=== PATIENT | female | born 1970 | race Caucasian/White ===

== ENCOUNTER 2018-06-17 18:47 | Emergency (ER) | payer OTHER ==
[2018-06-17] MEDS ORDERED: Morphine 2 MG/ML Syringe IVPUSH ONE (19:07)
[2018-06-17] MEDS: Sodium Chloride 0.9% 10 ML Syringe FLUSH PRN ×3 (19:13→21:07)
[2018-06-17] MEDS: Morphine 2 MG/ML Syringe IVPUSH PRN ×2 (20:13→21:07)
--- NOTE | 2018-06-17 20:17 | EDM.PDOC ---
ED HPI GENERAL MEDICAL PROBLEM - General Chief Complaint: Lower Extremity Injury/Pain Stated Complaint: left ankle pain Time Seen by Provider: 06/17/18 18:50 Source of Information: Reports: Family History Limitations: Reports: No Limitations - History of Present Illness INITIAL COMMENTS - FREE TEXT/NARRATIVE: Patient is a 47-year-old who comes in with chief complaint of left ankle pain states that she slipped on the ice now has significant pain Duration: Hour(s):, Getting Worse Location: Reports: Lower Extremity, Right Quality: Reports: Ache, Sharp, Throbbing Severity: Moderate Improves with: Reports: Medication Worsens with: Reports: Movement Context: Reports: Trauma Left Ankle Pain Score (Numeric/FACES): 7 - Related Data Allergies Allergy/AdvReac Type Severity Reaction Status Date / Time aloe Allergy Hives Verified 06/17/18 18:59 amoxicillin trihydrate Allergy Yeast Verified 06/17/18 18:59 [From Augmentin] Infection erythromycin base Allergy Cannot Verified 06/17/18 18:59 Remember hydrocodone Allergy Cannot Verified 06/17/18 18:59 Remember imipramine Allergy Headache Verified 06/17/18 18:59 oxycodone Allergy Nausea and Verified 06/17/18 18:59 Vomiting potassium clavulanate Allergy Yeast Verified 06/17/18 18:59 [From Augmentin] Infection Sulfa (Sulfonamide Allergy Rash Verified 06/17/18 18:59 Antibiotics) sulfasalazine Allergy Rash Verified 06/17/18 18:59 Home Meds: Home Meds Aspirin 81 mg PO DAILY 12/23/15 [History] FLUoxetine [PROzac] 40 mg PO DAILY 12/23/15 [History] Gabapentin [Neurontin] 300 mg PO BID 12/23/15 [History] Insulin Aspart [NovoLOG] 50 units SUBCUT ASDIRECTED 12/23/15 [History] Multivitamin [Multi-Vitamin Daily] 1 tab PO DAILY 12/23/15 [History] SUMAtriptan [Imitrex] 100 mg PO DAILY PRN 12/23/15 [History] Simvastatin [Zocor] 40 mg PO BEDTIME 12/23/15 [History] Tolterodine [Detrol] 2 mg PO BID 12/23/15 [History] Albuterol [Ventolin HFA] 2 puff INH Q4H PRN 09/11/17 [History] traMADol [Ultram] 50 mg PO Q6H PRN 09/11/17 [History] Omeprazole 20 mg PO DAILY 12/04/17 [History] Acetaminophen/Codeine [Tylenol with Codeine No.3 300MG/30MG] 2 tab PO Q4H PRN # 50 tablet 12/06/17 [Rx] Hydrocort/Neomycin/Polymyxin B [Cortisporin Otic Soln] 10 ml .XX QID #1 bottle 01/02/18 [Rx] Past Medical History HEENT History: Reports: Impaired Vision, Sinusitis Cardiovascular History: Reports: High Cholesterol Respiratory History: Reports: Bronchitis, Recurrent, Intubation, Previous Gastrointestinal History: Reports: GERD, Hemorrhoids, Hiatal Hernia, Other (See Below) Other Gastrointestinal History: polyp in stomach Genitourinary History: Reports: Other (See Below) Other Genitourinary History: Cyst on right ovary with ovary removed: Overactive bladder [employer] History: Reports: , Spontaneous Musculoskeletal History: Reports: Arthritis, Osteoarthritis Neurological History: Reports: Concussion, Migraines Psychiatric History: Reports: Anxiety, Depression, Panic Attack Endocrine/Metabolic History: Reports: Diabetes, Type I, Other (See Below) Other Endocrine/Metabolic History: insulin pump for 11 years - Infectious Disease History Infectious Disease History: Reports: Chicken Pox, Influenza, Shingles - Past Surgical History Head Surgeries/Procedures: Reports: None HEENT Surgical History: Reports: None Cardiovascular Surgical History: Reports: None Respiratory Surgical History: Reports: None GI Surgical History: Reports: Appendectomy, EGD, Hernia, Inguinal, Hernia Repair /Other Female Surgical History: Reports: Oophorectomy, Tubal Ligation Endocrine Surgical History: Reports: None Neurological Surgical History: Reports: None Musculoskeletal Surgical History: Reports: Other (See Below) Other Musculoskeletal Surgeries/Procedures:: right thumb joint replacement, left ulnar nerve relocation, right foot bone removal. Dermatological Surgical History: Reports: None Social & Family History - Family History Family Medical History: Noncontributory Cardiac: Reports: Heart Failure Endocrine/Metabolic: Reports: Diabetes, type II, Hypothyroidism - Tobacco Use Smoking Status *Q: Former Smoker Used Tobacco, but Quit: Yes Month/Year Tobacco Last Used: 0 - Caffeine Use Caffeine Use: Reports: None Review of Systems - Review of Systems Review Of Systems: ROS reveals no pertinent complaints other than HPI. ED EXAM, GENERAL - Physical Exam Exam: See Below Exam Limited By: No Limitations General Appearance: Alert, WD/WN, No Apparent Distress Ears: Normal External Exam, Normal Canal, Hearing Grossly Normal, Normal TMs Ear Exam: Bilateral Ear: Auricle Normal, Canal Normal, TM normal Nose: Normal Inspection, Normal Mucosa, No Blood Throat/Mouth: Normal Inspection, Normal Lips, Normal Teeth, Normal Gums, Normal Oropharynx, Normal Voice, No Airway Compromise Head: Atraumatic, Normocephalic Neck: Normal Inspection, Supple, Non-Tender, Full Range of Motion Respiratory/Chest: No Respiratory Distress, Lungs Clear, Normal Breath Sounds, No Accessory Muscle Use, Chest Non-Tender Cardiovascular: Normal Peripheral Pulses, Regular Rate, Rhythm, No Edema, No Gallop, No JVD, No Murmur, No Rub GI/Abdominal: Normal Bowel Sounds, Soft, Non-Tender, No Organomegaly, No Distention, No Abnormal Bruit, No Mass (Female) Exam: Deferred Rectal (Female) Exam: Deferred Back Exam: Normal Inspection, Full Range of Motion, NT Extremities: Joint Swelling, Limited Range of Motion Neurological: Alert, Oriented, CN II-XII Intact, Normal Cognition, Normal Gait, Normal Reflexes, No Motor/Sensory Deficits Psychiatric: Normal Affect, Normal Mood Skin Exam: Warm, Dry, Intact, Normal Color, No Rash Course - Orders/Labs/Meds Orders: Active Orders 24 hr Category Date Time Status Ankle Min 3V Lt [CR] Stat Exams 06/17/18 19:03 Taken Morphine Med 06/17/18 20:08 Ordered 2 mg IVPUSH Q1H PRN Sodium Chloride 0.9% [Saline Flush] Med 06/17/18 19:06 Active 10 ml FLUSH ASDIRECTED PRN Saline Lock Insert [OM.PC] Stat Oth 06/17/18 19:06 Ordered Medication Orders Sodium Chloride (Saline Flush) 10 ml FLUSH ASDIRECTED PRN PRN Reason: Keep Vein Open Last Admin: 06/17/18 19:13 Dose: 10 ml Meds: Medications Generic Name Dose Route Start Last Admin Trade Name Freq PRN Reason Stop Dose Admin Sodium Chloride 10 ml 06/17/18 19:06 06/17/18 19:13 Saline Flush FLUSH 10 ml ASDIRECTED PRN Administration Keep Vein Open Discontinued Medications Generic Name Dose Route Start Last Admin Trade Name Freq PRN Reason Stop Dose Admin Morphine Sulfate 2 mg 06/17/18 19:07 06/17/18 19:13 Morphine IVPUSH 06/17/18 19:08 2 mg ONETIME ONE Administration Departure - Departure Time of Disposition: 20:17 Disposition: Home, Self-Care 01 Condition: Fair Clinical Impression: Closed left fibular fracture, Fracture of fibula - Discharge Information *PRESCRIPTION DRUG MONITORING PROGRAM REVIEWED*: No *COPY OF PRESCRIPTION DRUG MONITORING REPORT IN PATIENT HENOK: No Referrals: Darshana Almeida PA-C [Primary Care Provider] - Care Plan Goals: Patient is to call [place] and make appointment with Dr. Shea for Monday we will continue her on Tylenol No. 3 one tablet every 6 hours for pain she is to be nonweightbearing and use crutches - My Orders Last 24 Hours: My Active Orders 06/17/18 19:03 Ankle Min 3V Lt [CR] Stat 06/17/18 19:06 Sodium Chloride 0.9% [Saline Flush] 10 ml FLUSH ASDIRECTED PRN Saline Lock Insert [OM.PC] Stat 06/17/18 20:08 Morphine 2 mg IVPUSH Q1H PRN - Assessment/Plan Last 24 Hours: My Active Orders 06/17/18 19:03 Ankle Min 3V Lt [CR] Stat 06/17/18 19:06 Sodium Chloride 0.9% [Saline Flush] 10 ml FLUSH ASDIRECTED PRN Saline Lock Insert [OM.PC] Stat 06/17/18 20:08 Morphine 2 mg IVPUSH Q1H PRN
[2018-06-17 23:41] VITALS: BP 130/74
== END 2018-06-17 21:15 | disposition home or self-care (01) ==
LOC: LL.ED 18:47
DX: S82.832A Other fracture of upper and lower end of left fibula, initial encounter for closed fracture (principal); E78.00 Pure hypercholesterolemia, unspecified; K21.9 Gastro-esophageal reflux disease without esophagitis; E10.8 Type 1 diabetes mellitus with unspecified complications; G43.909 Migraine, unspecified, not intractable, without status migrainosus; Z79.82 Long term (current) use of aspirin; Z79.891 Long term (current) use of opiate analgesic; Z79.899 Other long term (current) drug therapy; Z87.891 Personal history of nicotine dependence; Z88.1 Allergy status to other antibiotic agents; Z88.8 Allergy status to other drugs, medicaments and biological substances; Z88.2 Allergy status to sulfonamides; Z98.890 Other specified postprocedural states; Z90.89 Acquired absence of other organs; W00.0XXA Fall on same level due to ice and snow, initial encounter; Y92.89 Other specified places as the place of occurrence of the external cause
CPT/HCPCS: 73610-LT; 96374; 96376; 99283; J2270

== ENCOUNTER 2019-11-18 10:37 | Observation (INO) | payer OTHER ==
[2019-11-18 11:31] LABS: CHLORIDE,CL 105 mmol/L (98-107); SODIUM,NA 143 mmol/L (136-145)
[2019-11-18] MEDS ORDERED: Ondansetron 4 MG/2 ML SDV IVPUSH ONE (11:50)
[2019-11-18] MEDS ORDERED: Sodium Chloride 0.9% 1,000 ML IV ONE ×2 (11:50→14:15)
[2019-11-18] MEDS ORDERED: Sodium Chloride 0.9% 10 ML Syringe FLUSH PRN (11:50)
[2019-11-18] MEDS ORDERED: Metoclopramide 10 MG Tab PO PRN (14:12)
[2019-11-18] MEDS ORDERED: INSULIN ASPART 50 UNIT SUBCUT SCH (14:15)
[2019-11-18] MEDS ORDERED: hydrOXYzine HCl 25 MG Tab PO PRN (14:30)
[2019-11-18] MEDS ORDERED: Albuterol 8 GM Inhaler INH PRN (14:30)
[2019-11-18] MEDS ORDERED: traMADol 50 MG Tab PO PRN (14:30)
[2019-11-18] MEDS: Nicotine 21 MG/24 Hr Patch TRDERM SCH (14:47)
--- NOTE | 2019-11-18 16:59 | EDM.PDOC ---
ED HPI GENERAL MEDICAL PROBLEM - General Chief Complaint: Gastrointestinal Problem Stated Complaint: N/V, T1D Time Seen by Provider: 11/18/19 10:56 Source of Information: Reports: Patient History Limitations: Reports: No Limitations - History of Present Illness INITIAL COMMENTS - FREE TEXT/NARRATIVE: Patient comes to ER complaining of nausea/emesis for 24 hours. Cannot take an ti-nausea meds. Cannot eat/drink. Does have history of recently diagnosed gastroparesis. Denies fevers/chills. No abdominal pain/bowel changes. No other acute changes reported. Insulin-dependent diabetic. Has insulin pump. Abdominal discomfort right sided. This is usual place where she has been having discomfort. Has had appendix removed. No diagnosis of gallbladder dysfunction. - Related Data Allergies Allergy/AdvReac Type Severity Reaction Status Date / Time aloe Allergy Hives Verified 06/17/18 18:59 amoxicillin trihydrate Allergy Yeast Verified 06/17/18 18:59 [From Augmentin] Infection erythromycin base Allergy Cannot Verified 06/17/18 18:59 Remember hydrocodone Allergy Cannot Verified 06/17/18 18:59 Remember imipramine Allergy Headache Verified 06/17/18 18:59 oxycodone Allergy Nausea and Verified 06/17/18 18:59 Vomiting potassium clavulanate Allergy Yeast Verified 06/17/18 18:59 [From Augmentin] Infection Sulfa (Sulfonamide Allergy Rash Verified 06/17/18 18:59 Antibiotics) sulfasalazine Allergy Rash Verified 06/17/18 18:59 Home Meds: Home Meds Aspirin 81 mg PO DAILY 12/23/15 [History] Gabapentin [Neurontin] 300 mg PO BID 12/23/15 [History] Insulin Aspart [NovoLOG] 50 units SUBCUT ASDIRECTED 12/23/15 [History] Multivitamin [Multi-Vitamin Daily] 1 tab PO DAILY 12/23/15 [History] SUMAtriptan [Imitrex] 100 mg PO DAILY PRN 12/23/15 [History] Simvastatin [Zocor] 40 mg PO BEDTIME 12/23/15 [History] Tolterodine [Detrol] 2 mg PO BID 12/23/15 [History] Albuterol [Ventolin HFA] 2 puff INH Q4H PRN 09/11/17 [History] traMADol [Ultram] 50 mg PO Q6H PRN 09/11/17 [History] Omeprazole 20 mg PO DAILY 12/04/17 [History] Calcium Carb, Citrate/Vit D3 [Calcium + D3 ER Tablet] 1 each PO DAILY 11/18/19 [History] DULoxetine [Cymbalta] 60 mg PO DAILY 11/18/19 [History] Hydrocort/Neomycin/Polymyxin B [Cortisporin Otic Soln] 10 ml .XX QID PRN 11/17 [History] Metoclopramide HCl [Reglan] 10 mg PO TID PRN 11/18/19 [History] Ondansetron [Zofran] 4 mg PO Q4HR PRN 11/18/19 [History] hydrOXYzine HCL [Hydroxyzine HCl] 25 mg PO ASDIRECTED PRN 11/18/19 [History] Past Medical History HEENT History: Reports: Impaired Vision, Sinusitis Cardiovascular History: Reports: High Cholesterol Respiratory History: Reports: Bronchitis, Recurrent, Intubation, Previous Gastrointestinal History: Reports: GERD, Hemorrhoids, Hiatal Hernia, Other (See Below) Other Gastrointestinal History: polyp in stomach Genitourinary History: Reports: Other (See Below) Other Genitourinary History: Cyst on right ovary with ovary removed: Overactive bladder CLINIC SPECIALIST History: Reports: , Spontaneous Musculoskeletal History: Reports: Arthritis, Osteoarthritis Neurological History: Reports: Concussion, Migraines Psychiatric History: Reports: Anxiety, Depression, Panic Attack Endocrine/Metabolic History: Reports: Diabetes, Type I, Other (See Below) Other Endocrine/Metabolic History: insulin pump for 11 years Insulin Pump Model and Barking Machine Feeder: tandem t-slim, control IQ Type of Insulin Used in Pump: novolog When was Your Last Insulin Site/Set Changed: 11/14/19 Do You Have Enough Pump Supplies for Your Hospital Stay: Yes Who Manages Your Pump: Patient (Self) Other/Name of Person Who Manages Your Pump: Edward Who Medically Manages Your Pump (Provider): Dr. Saturnion Gunter Basal Rate (Units/hr): .95 Units of Insulin Per Gram of Carbohydrates:: 1-45 Do You Give Correction Boluses or Sliding Scale: Yes Patient/Family Able to Supply Written Copy of Sliding Scale: No Patient Able to Demonstrate: Current Pump Settings (Basal Rates), How to Get to Bolus Settings & Administer if Needed Insulin Pump Management Assessment Comments: pt manages insulin pump per self and if unable gives permission for her who is also a competent user - Infectious Disease History Infectious Disease History: Reports: Chicken Pox, Influenza, Shingles - Past Surgical History Head Surgeries/Procedures: Reports: None HEENT Surgical History: Reports: None Cardiovascular Surgical History: Reports: None Respiratory Surgical History: Reports: None GI Surgical History: Reports: Appendectomy, EGD, Hernia, Inguinal, Hernia Repair/Other Female Surgical History: Reports: Oophorectomy, Tubal Ligation Endocrine Surgical History: Reports: None Neurological Surgical History: Reports: None Musculoskeletal Surgical History: Reports: Other (See Below) Other Musculoskeletal Surgeries/Procedures:: right thumb joint replacement, left ulnar nerve relocation, right foot bone removal. Dermatological Surgical History: Reports: None Social & Family History - Family History Family Medical History: Noncontributory Cardiac: Reports: Heart Failure Respiratory: Reports: None GI: Reports: None Musculoskeletal: Reports: None Endocrine/Metabolic: Reports: Diabetes, type II, Hypothyroidism Hematologic: Reports: None Immunologic: Reports: None Oncologic: Reports: None - Tobacco Use Smoking Status *Q: Current Every Day Smoker Years of Tobacco use: 32 Packs/Tins Daily: 1 Smoking Cessation Information Provided To Patient: Patient Refused - Caffeine Use Caffeine Use: Reports: None Other Caffeine Use: 2-3 pops per day - Alcohol Use Alcohol Use History: No - Recreational Drug Use Recreational Drug Use: No ED ROS GENERAL - Review of Systems Review Of Systems: See Below Constitutional: Reports: Decreased Appetite. Denies: Fever, Chills, Malaise, Weakness, Diaphoresis HEENT: Denies: Eye Discharge, Nose Pain, Sinus Problem, Throat Pain, Throat Swelling, Vertigo, Vision Change Respiratory: Reports: No Symptoms Cardiovascular: Reports: No Symptoms GI/Abdominal: Reports: Abdominal Pain (right sided discomfort), Nausea, Vomiting. Denies: Constipation, Diarrhea, Hematochezia, Melena : Reports: No Symptoms Musculoskeletal: Reports: No Symptoms Skin: Reports: No Symptoms Neurological: Reports: No Symptoms Psychiatric: Reports: No Symptoms ED EXAM, GENERAL - Physical Exam Exam: See Below Exam Limited By: No Limitations General Appearance: Alert, WD/WN, No Apparent Distress Eye Exam: Bilateral Eye: EOMI, PERRL Ears: Hearing Grossly Normal Nose: No: Nasal Deformity, Nasal Swelling, Nasal Drainage Throat/Mouth: Normal Lips, Normal Voice, No Airway Compromise Head: Atraumatic, Normocephalic Neck: Supple, Non-Tender, Full Range of Motion Respiratory/Chest: No Respiratory Distress, Lungs Clear, Normal Breath Sounds, No Accessory Muscle Use, Chest Non-Tender Cardiovascular: Regular Rate, Rhythm, No Murmur GI/Abdominal: Tender (discomfort with palpation noted right side, moreso in RLQ), Abnormal Bowel Sounds (decreased throughout). No: Distended, Guarding, Rigid, Rebound (Female) Exam: Deferred Rectal (Female) Exam: Deferred Back Exam: Normal Inspection Extremities: Normal Inspection, Normal Range of Motion, Slow Capillary Refill Neurological: Alert, Oriented, CN II-XII Intact, Normal Cognition, Normal Gait, No Motor/Sensory Deficits Psychiatric: Normal Affect, Normal Mood Skin Exam: Warm, Dry, Intact, Normal Color Course - Vital Signs Last Recorded V/S: Last Vital Signs Temp 37.0 C 11/18/19 16:00 Pulse 61 11/18/19 16:00 Resp 16 11/18/19 16:00 BP 133/59 L 11/18/19 16:00 Pulse Ox 99 11/18/19 16:00 - Orders/Labs/Meds Orders: Active Orders 24 hr Category Date Time Status Abdomen 2V AP Flat Upright [CR] Stat Exams 11/18/19 12:10 Taken Sodium Chloride 0.9% [Saline Flush] Med 11/18/19 10:58 Active 10 ml FLUSH ASDIRECTED PRN Sodium Chloride 0.9% [Saline Flush] Med 11/18/19 11:50 Active 10 ml FLUSH ASDIRECTED PRN Saline Lock Insert [OM.PC] Routine Oth 11/18/19 10:58 Ordered Saline Lock Insert [OM.PC] Routine Oth 11/18/19 11:50 Ordered Medication Orders Albuterol (Ventolin Hfa) 0 gm INH Q4H PRN PRN Reason: Shortness of Breath Duloxetine HCl (Cymbalta) 60 mg PO DAILY SARIKA Gabapentin (Neurontin) 300 mg PO BID SARIKA Hydroxyzine HCl (Atarax) 25 mg PO ASDIRECTED PRN PRN Reason: N/V Sodium Chloride (Normal Saline) 1,000 mls @ 250 mls/hr IV .BOLUS ONE Stop: 11/18/19 18:14 Last Admin: 11/18/19 14:48 Dose: 250 mls/hr Documented by: GRANT Metoclopramide HCl (Reglan) 10 mg PO TID PRN PRN Reason: EATING Miscellaneous Information (Remove Patch) 1 ea TRDERM DAILY [facility] Nicotine (Habitrol) 21 mg TRDERM DAILY [facility] Last Admin: 11/18/19 14:47 Dose: 21 mg Documented by: GRANT Non-Formulary Medication (Insulin Aspart) 50 units SUBCUT ASDIRECTED SARIKA Omeprazole (Omeprazole) 20 mg PO DAILY [facility] Ondansetron HCl (Zofran) 4 mg IVPUSH Q6H PRN PRN Reason: Nausea/Vomiting Sodium Chloride (Saline Flush) 10 ml FLUSH ASDIRECTED PRN PRN Reason: Keep Vein Open Sodium Chloride (Saline Flush) 10 ml FLUSH ASDIRECTED PRN PRN Reason: Keep Vein Open Tramadol HCl (Ultram) 50 mg PO Q6H PRN PRN Reason: Pain Trospium (Sanctura) 20 mg PO BID [facility] Labs: Laboratory Tests 11/18/19 11/18/19 11/18/19 Range/Units 10:56 11:10 11:10 WBC 11.5 H (4.0-10.2) K/uL RBC 4.69 (3.77-5.09) M/uL Hgb 14.6 (11.7-15.5) g/dL Hct 43.6 (34.0-46.0) % MCV 93.0 (84.0-98.0) fL MCH 31.1 (28.2-33.3) pg MCHC 33.5 (31.7-36.0) g/dL RDW 13.7 (11.2-14.1) % Plt Count 250 (150-350) K/uL Neut % (Auto) 73.2 (45.0-80.0) % Lymph % (Auto) 16.8 (10.0-50.0) % [place] % (Auto) 7.5 (2.0-14.0) % Eos % (Auto) 2.1 (0.0-5.0) % Baso % (Auto) 0.4 (0.0-2.0) % Neut # (Auto) 8.41 H (1.40-7.00) K/uL Lymph # (Auto) 1.93 (0.50-3.50) K/uL [place] # (Auto) 0.86 (0.00-1.00) K/uL Eos # (Auto) 0.24 (0.00-0.50) K/uL Baso # (Auto) 0.05 (0.00-0.20) K/uL Sodium 143 (136-145) mmol/L Potassium 3.9 (3.5-5.1) mmol/L Chloride 105 (98-107) mmol/L Carbon Dioxide 29.5 (21.0-32.0) mmol/L BUN 15 (7-18) mg/dL Creatinine 0.85 (0.51-1.17) mg/dL Est Cr Clr Drug Dosing TNP Estimated GFR (MDRD) > 60 mL/min Glucose 185 H (74-106) mg/dL Lactic Acid (0.4-2.0) mmol/L Calcium 9.3 (8.5-10.1) mg/dL Magnesium 1.6 L (1.8-2.4) mg/dL Total Bilirubin 0.7 (0.2-1.0) mg/dL AST 17 (15-37) U/L ALT 20 (12-78) U/L Alkaline Phosphatase 99 (46-116) IU/L Total Protein 7.0 (6.4-8.2) g/dL Albumin 3.3 L (3.4-5.0) g/dL Specimen Type Urinblad Urine Color Yellow Urine Appearance Slightly cloudy Urine pH 6.0 (5.0-9.0) Ur Specific [place] 1.025 (1.005-1.030) Urine Protein 30 H (NEGATIVE) mg/dL Urine Glucose (UA) Negative (NEGATIVE) mg/dL Urine Ketones >=160 H (NEGATIVE) mg/dL Urine Occult Blood Large H (NEGATIVE) Urine Nitrite Negative (NEGATIVE) Urine Bilirubin Moderate H (NEGATIVE) Urine Urobilinogen 0.2 (0.2-1.0) E.U./dL Ur Leukocyte Esterase Negative (NEGATIVE) U Hyaline Cast (Auto) Few Urine RBC 30-40 H /HPF Urine WBC 0-5 /HPF Ur Epithelial Cells Moderate H /LPF Amorphous Sediment Few (0/HPF) /HPF Urine Bacteria Moderate H (NONE TO FEW) /HPF Granular Casts (Auto) Moderate Urine Mucus Few H (NEGATIVE) /LPF Ketones 11/18/19 11/18/19 Range/Units 11:10 11:10 WBC (4.0-10.2) K/uL RBC (3.77-5.09) M/uL Hgb (11.7-15.5) g/dL Hct (34.0-46.0) % MCV (84.0-98.0) fL MCH (28.2-33.3) pg MCHC (31.7-36.0) g/dL RDW (11.2-14.1) % Plt Count (150-350) K/uL Neut % (Auto) (45.0-80.0) % Lymph % (Auto) (10.0-50.0) % [place] % (Auto) (2.0-14.0) % Eos % (Auto) (0.0-5.0) % Baso % (Auto) (0.0-2.0) % Neut # (Auto) (1.40-7.00) K/uL Lymph # (Auto) (0.50-3.50) K/uL [place] # (Auto) (0.00-1.00) K/uL Eos # (Auto) (0.00-0.50) K/uL Baso # (Auto) (0.00-0.20) K/uL Sodium (136-145) mmol/L Potassium (3.5-5.1) mmol/L Chloride (98-107) mmol/L Carbon Dioxide (21.0-32.0) mmol/L BUN (7-18) mg/dL Creatinine (0.51-1.17) mg/dL Est Cr Clr Drug Dosing Estimated GFR (MDRD) mL/min Glucose (74-106) mg/dL Lactic Acid 1.1 (0.4-2.0) mmol/L Calcium (8.5-10.1) mg/dL Magnesium (1.8-2.4) mg/dL Total Bilirubin (0.2-1.0) mg/dL AST (15-37) U/L ALT (12-78) U/L Alkaline Phosphatase (46-116) IU/L Total Protein (6.4-8.2) g/dL Albumin (3.4-5.0) g/dL Specimen Type Urine Color Urine Appearance Urine pH (5.0-9.0) Ur Specific [place] (1.005-1.030) Urine Protein (NEGATIVE) mg/dL Urine Glucose (UA) (NEGATIVE) mg/dL Urine Ketones (NEGATIVE) mg/dL Urine Occult Blood (NEGATIVE) Urine Nitrite (NEGATIVE) Urine Bilirubin (NEGATIVE) Urine Urobilinogen (0.2-1.0) E.U./dL Ur Leukocyte Esterase (NEGATIVE) U Hyaline Cast (Auto) Urine RBC /HPF Urine WBC /HPF Ur Epithelial Cells /LPF Amorphous Sediment (0/HPF) /HPF Urine Bacteria (NONE TO FEW) /HPF Granular Casts (Auto) Urine Mucus (NEGATIVE) /LPF Ketones Negative Meds: Medications Generic Name Dose Route Start Last Admin Trade Name Freq PRN Reason Stop Dose Admin Albuterol 0 gm 11/18/19 14:30 Ventolin Hfa INH Q4H PRN Shortness of Breath Duloxetine HCl 60 mg 11/19/19 08:00 Cymbalta PO DAILY [facility] Gabapentin 300 mg 11/18/19 18:00 Neurontin PO BID SARIKA Hydroxyzine HCl 25 mg 11/18/19 14:30 Atarax PO ASDIRECTED PRN N/V Sodium Chloride 1,000 mls @ 250 mls/hr 11/18/19 14:15 11/18/19 14:48 Normal Saline IV 11/18/19 18:14 250 mls/hr .BOLUS ONE Administration Metoclopramide HCl 10 mg 11/18/19 14:12 Reglan PO TID PRN EATING Miscellaneous Information 1 ea 11/19/19 08:00 Remove Patch TRDERM DAILY [facility] Nicotine 21 mg 11/18/19 14:15 11/18/19 14:47 Habitrol TRDERM 21 mg DAILY SARIKA Administration Non-Formulary Medication 50 units 11/18/19 14:15 Insulin Aspart SUBCUT ASDIRECTED SARIKA Omeprazole 20 mg 11/19/19 08:00 Omeprazole PO DAILY SARIKA Ondansetron HCl 4 mg 11/18/19 18:00 Zofran IVPUSH Q6H PRN Nausea/Vomiting Sodium Chloride 10 ml 11/18/19 10:58 Saline Flush FLUSH ASDIRECTED PRN Keep Vein Open Sodium Chloride 10 ml 11/18/19 11:50 Saline Flush FLUSH ASDIRECTED PRN Keep Vein Open Tramadol HCl 50 mg 11/18/19 14:30 Ultram PO Q6H PRN Pain Trospium 20 mg 11/18/19 18:00 Sanctura PO BID SARIKA Discontinued Medications Generic Name Dose Route Start Last Admin Trade Name Freq PRN Reason Stop Dose Admin Magnesium Sulfate/Dextrose 1 100 mls @ 100 mls/hr 11/18/19 11:50 11/18/19 13:34 gm/ Premix IV 11/18/19 12:49 Not Given ONETIME ONE Sodium Chloride 1,000 mls @ 999 mls/hr 11/18/19 11:50 11/18/19 12:12 Normal Saline IV 11/18/19 12:50 999 mls/hr .BOLUS ONE Administration Ondansetron HCl 4 mg 11/18/19 11:50 11/18/19 12:12 Zofran IVPUSH 11/18/19 11:51 4 mg ONETIME ONE Administration - Radiology Interpretation Free Text/Narrative:: Abdomen flat/upright does not show any air/fluid levels or signs of acute obstruction - Re-Assessments/Exams Free Text/Narrative Re-Assessment/Exam: Labs obtained in addition to xray. WBC mildly elevated 11.5 Chem showed glucose of 185 and Mg of 1.6, otherwise unremarkable. Serum ketones negative. UA showed ketones/no evidence of UTI. Given that patient is Type 1 diabetic and cannot eat/drink, IV fluids started/received Zofran and admitted observation. Departure - Departure Time of Disposition: 13:00 Disposition: Refer to Observation Condition: Good Clinical Impression: Vomiting - Discharge Information *PRESCRIPTION DRUG MONITORING PROGRAM REVIEWED*: Not Applicable *COPY OF PRESCRIPTION DRUG MONITORING REPORT IN PATIENT HENOK: Not Applicable Sepsis Event Note (ED) - Evaluation Sepsis Screening Result: No Definite Risk - Focused Exam Vital Signs: Vital Signs Temp Pulse Resp BP Pulse Ox 11/18/19 13:27 36.7 C 72 16 135/70 99 11/18/19 10:40 36.4 C 86 16 141/68 H 97 - Problem List & Annotations (1) Vomiting SNOMED Code(s): 885354160 Code(s): R11.10 - VOMITING, UNSPECIFIED Status: Acute Priority: High Current Visit: Yes Onset Date: 11/17/19 Annotation/Comment:: Improved after IV Zofran. Continue PRN Zofran and IV fluids. Advance diet as tolerated. Hx gastroparesis. No signs of obstruction noted on abdominal films. Consider RUQ US study to assess gallbladder if symptoms continue given right sided discomfort. (2) Dehydration SNOMED Code(s): 44665916 Code(s): E86.0 - DEHYDRATION Status: Acute Priority: High Current Visit: Yes Onset Date: ~11/18/19 Annotation/Comment:: IV rehydration. (3) IDDM (insulin dependent diabetes mellitus) SNOMED Code(s): 01183306 Code(s): OOT8170 - Status: Chronic Priority: Medium Current Visit: Yes Annotation/Comment:: Observe blood sugar trends as patient is not taking in her usual amount of daily calories. (4) Hypomagnesemia SNOMED Code(s): 427208834 Code(s): E83.42 - HYPOMAGNESEMIA Status: Chronic Priority: Medium Current Visit: Yes Annotation/Comment:: Noted to be low at 1.6 today. Patient informed that level will likely drop further due to IV fluids. She refused Mag supplementation saying that her museum educator counseled her against it. (5) Hyperlipidemia SNOMED Code(s): 39365637 Code(s): E78.5 - HYPERLIPIDEMIA, UNSPECIFIED Status: Chronic Priority: Low Current Visit: No Annotation/Comment:: Follow up with primary provider. Qualifiers: Hyperlipidemia type: unspecified Qualified Code(s): E78.5 - Hyperlipidemia, unspecified (6) Hiatal hernia SNOMED Code(s): 75750211 Code(s): K44.9 - DIAPHRAGMATIC HERNIA WITHOUT OBSTRUCTION OR GANGRENE Status: Chronic Priority: Low Current Visit: No Annotation/Comment:: stable per patient (7) Peripheral neuropathy SNOMED Code(s): 040846122 Code(s): G62.9 - POLYNEUROPATHY, UNSPECIFIED Status: Chronic Priority: Low Current Visit: No Annotation/Comment:: stable by history Qualifiers: Peripheral neuropathy type: polyneuropathy, unspecified Qualified Code(s): G62.9 - Polyneuropathy, unspecified (8) GERD (gastroesophageal reflux disease) SNOMED Code(s): 174976289 Code(s): K21.9 - GASTRO-ESOPHAGEAL REFLUX DISEASE WITHOUT ESOPHAGITIS Status: Chronic Priority: Low Current Visit: No Annotation/Comment:: Stable by history (9) Overactive bladder SNOMED Code(s): 997077233 Code(s): N32.81 - OVERACTIVE BLADDER Status: Chronic Priority: Low Current Visit: No Annotation/Comment:: Stable by history (10) COPD (chronic obstructive pulmonary disease) SNOMED Code(s): 28126193 Code(s): J44.9 - CHRONIC OBSTRUCTIVE PULMONARY DISEASE, UNSPECIFIED Status: Chronic Current Visit: Yes Annotation/Comment:: Smoker, stable. Qualifiers: COPD type: emphysema Emphysema type: unspecified Qualified Code(s): J43.9 - Emphysema, unspecified (11) Migraine SNOMED Code(s): 51090306 Code(s): G43.909 - MIGRAINE, UNSP, NOT INTRACTABLE, WITHOUT STATUS M IGRAINOSUS Status: Chronic Priority: Low Current Visit: No Annotation/Comment:: stable by history, currently without migraine complaint Qualifiers: Migraine type: unspecified - Problem List Review Problem List Initiated/Reviewed/Updated: Yes - My Orders Last 24 Hours: My Active Orders 11/18/19 10:58 Sodium Chloride 0.9% [Saline Flush] 10 ml FLUSH ASDIRECTED PRN Saline Lock Insert [OM.PC] Routine 11/18/19 11:50 Sodium Chloride 0.9% [Saline Flush] 10 ml FLUSH ASDIRECTED PRN Saline Lock Insert [OM.PC] Routine 11/18/19 12:10 Abdomen 2V AP Flat Upright [CR] Stat - Assessment/Plan Admission H&P: Please use this note as an admission H&P Last 24 Hours: My Active Orders 11/18/19 10:58 Sodium Chloride 0.9% [Saline Flush] 10 ml FLUSH ASDIRECTED PRN Saline Lock Insert [OM.PC] Routine 11/18/19 11:50 Sodium Chloride 0.9% [Saline Flush] 10 ml FLUSH ASDIRECTED PRN Saline Lock Insert [OM.PC] Routine 11/18/19 12:10 Abdomen 2V AP Flat Upright [CR] Stat Assessment:: as above. Stable and suitable for general supervision. Plan: as above. Will advance diet as tolerated. Consider discharge home tomorrow if doing better. Recheck labs in AM. to assume patient's care in AM.
[2019-11-18] MEDS: Trospium 20 MG Tab PO SCH (17:29)
[2019-11-18] MEDS: Gabapentin 300 MG Cap PO SCH (17:29)
[2019-11-18] MEDS ORDERED: Ondansetron 4 MG/2 ML SDV IVPUSH PRN (18:00)
[2019-11-19] MEDS: Trospium 20 MG Tab PO SCH ×2 (07:37→18:27)
[2019-11-19] MEDS: Nicotine 21 MG/24 Hr Patch TRDERM SCH (07:38)
[2019-11-19] MEDS: Gabapentin 300 MG Cap PO SCH ×2 (07:38→18:27)
[2019-11-19] MEDS: Omeprazole 20 MG Cap.CR PO SCH (07:38)
[2019-11-19] MEDS: DULoxetine 30 MG Cap PO SCH (07:38)
[2019-11-19] MEDS: Remove Patch NICOTINE PATCH TRDERM SCH (07:39)
[2019-11-19 08:08] LABS: CHLORIDE,CL 111 mmol/L (98-107); SODIUM,NA 146 mmol/L (136-145)
[2019-11-19] MEDS: Sodium Chloride 0.9% 10 ML Syringe FLUSH PRN ×4 (10:09→20:31)
--- NOTE | 2019-11-19 11:29 | PCM.PN ---
- General Info Date of Service: 11/19/19 Admission Dx/Problem (Free Text): 1. Nausea/emesis 2. Hydration 3. IDDM with gastroenteropathy Functional Status: Reports: Pain Controlled, Tolerating Diet, Ambulating, Urinating. Denies: New Symptoms, Incentive Spirometry Pain Score: 3 (Stable Nonspecific abdominal cramping) - Review of Systems General: Denies: Fever, Weakness, Fatigue, Malaise, Chills, Night Sweats, Appetite (Good) HEENT: Denies: Dysphasia, Ear Pain, Eye Pain, Headaches, Post Nasal Drip, Sinus Congestion, Sore Throat, Rhinitis, Visual Changes Pulmonary: Reports: No Symptoms. Denies: Shortness of Breath, Pleuritic Chest Pain, Cough, Sputum, Hemoptysis, Wheezing Cardiovascular: Reports: No Symptoms. Denies: Chest Pain, Palpitations, Dyspnea on Exertion, Orthopnea, PND, Edema, Lightheadedness Gastrointestinal: Reports: Abdominal Pain (As above), Nausea. Denies: Constipation, Decreased Appetite, Diarrhea, Difficulty Swallowing, Flatus, Hematochezia, Melena, Vomiting Genitourinary: Reports: No Symptoms. Denies: Dysuria, Frequency, Burning, Pain, Urgency, Incontinence, Hematuria, Retention, Flank Pain Musculoskeletal: Reports: No Symptoms. Denies: Neck Pain, Shoulder Pain, Arm Pain, Back Pain, Leg Pain Skin: Reports: No Symptoms. Denies: Diaphoresis, Bruising, Other Neurological: Reports: No Symptoms. Denies: Dizziness, Numbness, Paresthesia, Tingling, Weakness Psychiatric: Reports: No Symptoms. Denies: Confusion, Agitation, Cravings, Hallucinations - Patient Data Vitals - Most Recent: Last Vital Signs Temp 36.5 C 11/19/19 07:40 Pulse 73 11/19/19 07:40 Resp 16 11/19/19 07:40 BP 131/77 11/19/19 07:40 Pulse Ox 99 11/19/19 07:40 Vital Signs - 24 hr 11/18/19 11/18/19 11/18/19 13:27 16:00 20:01 Temperature [ 36.7 C 37.0 C 36.3 C Temporal] Pulse, 72 61 56 L Peripheral [ Pulse Oximetry] Respiratory 16 16 20 Rate Blood Pressure 133/59 L 129/70 [Left Upper Arm ] Blood Pressure 135/70 [Right Upper Arm] O2 Sat by Pulse 99 99 97 Oximetry 11/19/19 11/19/19 00:55 07:40 Temperature [ 36.4 C 36.5 C Temporal] Pulse, 62 73 Peripheral [ Pulse Oximetry] Respiratory 14 16 Rate Blood Pressure 142/64 H 131/77 [Left Upper Arm ] Blood Pressure [Right Upper Arm] O2 Sat by Pulse 99 99 Oximetry Weight - Most Recent: 95.209 kg I&O - Last 24 Hours: Intake & Output 11/18/19 11/19/19 11/19/19 22:59 06:59 14:59 Intake Total 807 100 500 Output Total 800 600 Balance 7 -500 500 Imaging Impressions - Last 24 Hours: None Lab Results Last 24 Hours: Laboratory Results - last 24 hr 11/18/19 11/18/19 11/18/19 Range/Units 10:56 11:10 11:10 WBC (4.0-10.2) K/uL RBC (3.77-5.09) M/uL Hgb (11.7-15.5) g/dL Hct (34.0-46.0) % MCV (84.0-98.0) fL MCH (28.2-33.3) pg MCHC (31.7-36.0) g/dL RDW (11.2-14.1) % Plt Count (150-350) K/uL Neut % (Auto) (45.0-80.0) % Lymph % (Auto) (10.0-50.0) % Lyon % (Auto) (2.0-14.0) % Eos % (Auto) (0.0-5.0) % Baso % (Auto) (0.0-2.0) % Neut # (Auto) (1.40-7.00) K/uL Lymph # (Auto) (0.50-3.50) K/uL Lyon # (Auto) (0.00-1.00) K/uL Eos # (Auto) (0.00-0.50) K/uL Baso # (Auto) (0.00-0.20) K/uL Sodium 143 (136-145) mmol/L Potassium 3.9 (3.5-5.1) mmol/L Chloride 105 (98-107) mmol/L Carbon Dioxide 29.5 (21.0-32.0) mmol/L BUN 15 (7-18) mg/dL Creatinine 0.85 (0.51-1.17) mg/dL Est Cr Clr Drug Dosing TNP Estimated GFR (MDRD) > 60 mL/min Glucose 185 H (74-106) mg/dL Lactic Acid 1.1 (0.4-2.0) mmol/L Calcium 9.3 (8.5-10.1) mg/dL Magnesium 1.6 L (1.8-2.4) mg/dL Total Bilirubin 0.7 (0.2-1.0) mg/dL AST 17 (15-37) U/L ALT 20 (12-78) U/L Alkaline Phosphatase 99 (46-116) IU/L Total Protein 7.0 (6.4-8.2) g/dL Albumin 3.3 L (3.4-5.0) g/dL Specimen Type Urinblad Urine Color Yellow Urine Appearance Slightly cloudy Urine pH 6.0 (5.0-9.0) Ur Specific [place] 1.025 (1.005-1.030) Urine Protein 30 H (NEGATIVE) mg/dL Urine Glucose (UA) Negative (NEGATIVE) mg/dL Urine Ketones >=160 H (NEGATIVE) mg/dL Urine Occult Blood Large H (NEGATIVE) Urine Nitrite Negative (NEGATIVE) Urine Bilirubin Moderate H (NEGATIVE) Urine Urobilinogen 0.2 (0.2-1.0) E.U./dL Ur Leukocyte Esterase Negative (NEGATIVE) U Hyaline Cast (Auto) Few Urine RBC 30-40 H /HPF Urine WBC 0-5 /HPF Ur Epithelial Cells Moderate H /LPF Amorphous Sediment Few (0/HPF) /HPF Urine Bacteria Moderate H (NONE TO FEW) /HPF Granular Casts (Auto) Moderate Urine Mucus Few H (NEGATIVE) /LPF Ketones 11/18/19 11/19/19 11/19/19 Range/Units 11:10 07:15 07:15 WBC 6.0 (4.0-10.2) K/uL RBC 4.36 (3.77-5.09) M/uL Hgb 13.4 (11.7-15.5) g/dL Hct 40.9 (34.0-46.0) % MCV 93.8 (84.0-98.0) fL MCH 30.7 (28.2-33.3) pg MCHC 32.8 (31.7-36.0) g/dL RDW 13.4 (11.2-14.1) % Plt Count 233 (150-350) K/uL Neut % (Auto) 36.3 L (45.0-80.0) % Lymph % (Auto) 43.2 (10.0-50.0) % Lyon % (Auto) 10.4 (2.0-14.0) % Eos % (Auto) 9.4 H (0.0-5.0) % Baso % (Auto) 0.7 (0.0-2.0) % Neut # (Auto) 2.17 (1.40-7.00) K/uL Lymph # (Auto) 2.58 (0.50-3.50) K/uL Lyon # (Auto) 0.62 (0.00-1.00) K/uL Eos # (Auto) 0.56 H (0.00-0.50) K/uL Baso # (Auto) 0.04 (0.00-0.20) K/uL Sodium 146 H (136-145) mmol/L Potassium 3.9 (3.5-5.1) mmol/L Chloride 111 H (98-107) mmol/L Carbon Dioxide 29.8 (21.0-32.0) mmol/L BUN 10 (7-18) mg/dL Creatinine 0.79 (0.51-1.17) mg/dL Est Cr Clr Drug Dosing 89.03 Estimated GFR (MDRD) > 60 mL/min Glucose 106 (74-106) mg/dL Lactic Acid (0.4-2.0) mmol/L Calcium 8.4 L (8.5-10.1) mg/dL Magnesium 1.8 (1.8-2.4) mg/dL Total Bilirubin (0.2-1.0) mg/dL AST (15-37) U/L ALT (12-78) U/L Alkaline Phosphatase (46-116) IU/L Total Protein (6.4-8.2) g/dL Albumin (3.4-5.0) g/dL Specimen Type Urine Color Urine Appearance Urine pH (5.0-9.0) Ur Specific [place] (1.005-1.030) Urine Protein (NEGATIVE) mg/dL Urine Glucose (UA) (NEGATIVE) mg/dL Urine Ketones (NEGATIVE) mg/dL Urine Occult Blood (NEGATIVE) Urine Nitrite (NEGATIVE) Urine Bilirubin (NEGATIVE) Urine Urobilinogen (0.2-1.0) E.U./dL Ur Leukocyte Esterase (NEGATIVE) U Hyaline Cast (Auto) Urine RBC /HPF Urine WBC /HPF Ur Epithelial Cells /LPF Amorphous Sediment (0/HPF) /HPF Urine Bacteria (NONE TO FEW) /HPF Granular Casts (Auto) Urine Mucus (NEGATIVE) /LPF Ketones Negative Haja Results Last 24 Hours: None Med Orders - Current: Current Medications Albuterol (Ventolin Hfa) 0 gm INH Q4H PRN PRN Reason: Shortness of Breath Duloxetine HCl (Cymbalta) 60 mg PO DAILY [facility] Last Admin: 11/19/19 07:38 Dose: 60 mg Documented by: Gabapentin (Neurontin) 300 mg PO BID [facility] Last Admin: 11/19/19 07:38 Dose: 300 mg Documented by: Hydroxyzine HCl (Atarax) 25 mg PO ASDIRECTED PRN PRN Reason: N/V Metoclopramide HCl (Reglan) 10 mg PO TID PRN PRN Reason: EATING Miscellaneous Information (Remove Patch) 1 ea TRDERM DAILY [facility] Last Admin: 11/19/19 07:39 Dose: 1 ea Documented by: Nicotine (Habitrol) 21 mg TRDERM DAILY [facility] Last Admin: 11/19/19 07:38 Dose: 21 mg Documented by: Non-Formulary Medication (Insulin Aspart) 50 units SUBCUT ASDIRECTED [facility] Omeprazole (Omeprazole) 20 mg PO DAILY [facility] Last Admin: 11/19/19 07:38 Dose: 20 mg Documented by: Ondansetron HCl (Zofran) 4 mg IVPUSH Q6H PRN PRN Reason: Nausea/Vomiting Last Admin: 11/19/19 10:08 Dose: 4 mg Documented by: Sodium Chloride (Saline Flush) 10 ml FLUSH ASDIRECTED PRN PRN Reason: Keep Vein Open Last Admin: 11/19/19 10:09 Dose: 10 ml Documented by: Sodium Chloride (Saline Flush) 10 ml FLUSH ASDIRECTED PRN PRN Reason: Keep Vein Open Tramadol HCl (Ultram) 50 mg PO Q6H PRN PRN Reason: Pain Trospium (Sanctura) 20 mg PO BID SARIKA Last Admin: 11/19/19 07:37 Dose: 20 mg Documented by: Discontinued Medications Magnesium Sulfate/Dextrose 1 (gm/ Premix) 100 mls @ 100 mls/hr IV ONETIME ONE Stop: 11/18/19 12:49 Last Admin: 11/18/19 13:34 Dose: Not Given Documented by: Sodium Chloride (Normal Saline) 1,000 mls @ 999 mls/hr IV .BOLUS ONE Stop: 11/18/19 12:50 Last Admin: 11/18/19 12:12 Dose: 999 mls/hr Documented by: Sodium Chloride (Normal Saline) 1,000 mls @ 250 mls/hr IV .BOLUS ONE Stop: 11/18/19 18:14 Last Admin: 11/18/19 14:48 Dose: 250 mls/hr Documented by: Ondansetron HCl (Zofran) 4 mg IVPUSH ONETIME ONE Stop: 11/18/19 11:51 Last Admin: 11/18/19 12:12 Dose: 4 mg Documented by: - Exam Quality Assessment: DVT Prophylaxis. No: Supplemental Oxygen, Central Line/PICC, Urine Catheter General: Alert, Oriented, Cooperative, No Acute Distress HEENT: Pupils Equal, Pupils Reactive, EOMI, Mucous Membr. Moist/[place]. No: Scleral Icterus Neck: Supple, Trachea Midline, No JVD. No: Lymphadenopathy, Carotid Bruit Lungs: Clear to Auscultation, Normal Respiratory Effort. No: Rub Cardiovascular: Regular Rate, Regular Rhythm, No Murmurs. No: Gallops, Rubs GI/Abdominal Exam: Normal Bowel Sounds, Soft, Non-Tender, No Organomegaly, No Distention, No Abnormal Bruit, No Mass. No: Guarding (Female) Exam: Deferred Back Exam: Normal Inspection, Full Range of Motion. No: CVA Tenderness (L), CVA Tenderness (R), Muscle Spasm Extremities: Normal Inspection, Normal Range of Motion, Non-Tender, No Pedal Edema, Normal Capillary Refill. No: Saulo's Sign Peripheral Pulses: 2+: Radial (L), Radial (R), Dorsalis Pedis (L), Dorsalis Pedis (R) Skin: Warm, Dry, Intact. No: Rash, Ecchymosis Neurological: No New Focal Deficit Psy/Mental Status: Alert, Anxious (Mild), Depressed (Borderline). No: Agitated, Hallucinations, Withdrawal Symptoms Sepsis Event Note - Evaluation Sepsis Screening Result: No Definite Risk - Focused Exam Vital Signs: Vital Signs Temp Pulse Resp BP Pulse Ox 11/19/19 07:40 36.5 C 73 16 131/77 99 11/19/19 00:55 36.4 C 62 14 142/64 H 99 Date Exam was Performed: 11/19/19 Time Exam was Performed: 11:42 - Problem List & Annotations (1) Nausea and vomiting SNOMED Code(s): 45403408 Code(s): R11.2 - NAUSEA WITH VOMITING, UNSPECIFIED Status: Acute Priority: Medium Current Visit: Yes Onset Date: ~11/18/19 Qualifiers: Vomiting Intractability: non-intractable Annotation/Comment:: Initially improved during early phases of observation status however returned nausea without emesis on 11/18 AM. Note current Ultram therapy. Various therapeutic options were discussed with the patient, who is requesting additional day of observation and further medication adjustment. Note recently diagnosed diabetic gastroenteropathy. Continue to observe closely by regular providers with further GI workup depending on her clinical course. Cont inue IV fluids. Note history of renal cysts and chronic microscopic hematuria with no current UTI symptoms, colic, history of urolithiasis, etc. Urine specimen set up for culture and sensitivity. Note resolution of previous leukocytosis on admission. (2) COPD (chronic obstructive pulmonary disease) SNOMED Code(s): 85621115 Code(s): J44.9 - CHRONIC OBSTRUCTIVE PULMONARY DISEASE, UNSPECIFIED Status: Chronic Priority: Medium Current Visit: Yes Qualifiers: COPD type: emphysema Emphysema type: panlobular Qualified Code(s): J43.1 - Panlobular emphysema Annotation/Comment:: No recent fever or bronchitic type symptoms. (3) Hypomagnesemia SNOMED Code(s): 450978725 Code(s): E83.42 - HYPOMAGNESEMIA Status: Chronic Priority: Medium Current Visit: Yes Annotation/Comment:: Decreased magnesium level of 1.6 on 11/17. Patient informed that level will likely drop further due to IV fluids. She refused previously ordered 1 g of magnesium supplement IV Mag supp lementation in the emergency room saying that her rn diabetes educator counseled her against it. Magnesium level normal on 11/18 without supplementation. (4) IDDM (insulin dependent diabetes mellitus) SNOMED Code(s): 11105268 Code(s): BOV6211 - Status: Chronic Priority: Medium Current Visit: Yes Annotation/Comment:: Note current insulin pump therapy. Observe blood sugar trends as patient is not taking in her usual amount of daily calories. (5) GERD (gastroesophageal reflux disease) SNOMED Code(s): 314994306 Code(s): K21.9 - GASTRO-ESOPHAGEAL REFLUX DISEASE WITHOUT ESOPHAGITIS Status: Chronic Priority: Medium Current Visit: Yes Qualifiers: Esophagitis presence: without esophagitis Qualified Code(s): K21.9 - Gastro-esophageal reflux disease without esophagitis Annotation/Comment:: Stable by history (6) Renal cyst SNOMED Code(s): 282175116 Code(s): N28.1 - CYST OF KIDNEY, ACQUIRED Status: Chronic Priority: Medium Current Visit: Yes Annotation/Comment:: As above. Note status post hysterectomy. - Problem List Review Problem List Initiated/Reviewed/Updated: Yes - Assessment Assessment:: As above - Plan Plan:: As above. Extensive precautions were given to the patient, who is in agreement with the treatment plan. Continue observation status until tomorrow morning secondary to patient's returned nausea as above. Likely discharge to home tomorrow with further adjustment of medications today.
[2019-11-19] MEDS: Lactated Ringers 1,000 ML IV SCH ×2 (12:41→22:54)
[2019-11-19] MEDS: Metoclopramide 10 MG/2 ML SDV IVPUSH SCH ×3 (12:41→20:30)
[2019-11-20] MEDS: Omeprazole 20 MG Cap.CR PO SCH (07:33)
[2019-11-20] MEDS: Gabapentin 300 MG Cap PO SCH (07:33)
[2019-11-20] MEDS: Trospium 20 MG Tab PO SCH (07:33)
[2019-11-20] MEDS: DULoxetine 30 MG Cap PO SCH (07:33)
[2019-11-20] MEDS: Metoclopramide 10 MG/2 ML SDV IVPUSH SCH (07:34)
[2019-11-20] MEDS: Nicotine 21 MG/24 Hr Patch TRDERM SCH (07:35)
[2019-11-20] MEDS: Remove Patch NICOTINE PATCH TRDERM SCH (07:35)
[2019-11-20] MEDS: Sodium Chloride 0.9% 10 ML Syringe FLUSH PRN (07:37)
[2019-11-20 08:23] LABS: CHLORIDE,CL 108 mmol/L (98-107); SODIUM,NA 142 mmol/L (136-145)
--- NOTE | 2019-11-20 08:51 | PCM.DCSUM1 ---
Discharge Summary - Hospital Course HPI Initial Comments: See emergency room note/admission H&P Brief History: See emergency room note/admission H&P Diagnosis: Stroke: No Modified [place] Scale: No Symptoms at All Modified [place] Scale Score: 0 - Discharge Data Discharge Date: 11/20/19 Discharge Disposition: Home, Self-Care 01 Condition: Good - Referral to Home Health Primary Care Physician: Darshana Almeida PA-C - Discharge Diagnosis/Problem(s) (1) Nausea and vomiting SNOMED Code(s): 33210575 ICD Code: R11.2 - NAUSEA WITH VOMITING, UNSPECIFIED Status: Acute Priority: Medium Current Visit: Yes Onset Date: ~11/18/19 Problem Details: Symptoms significantly improved with regularly scheduled Reglan, which was initiated on 11/18 as below. Patient will agree to resuming be more compliant with her previous when necessary oral Reglan, however she was cautioned wm rning overuse of this medication, including development of side effects such as tardive dyskinesia, etc. Symptoms were initially improved during early phases of observation status however returned nausea without emesis on 11/18 AM. Note current Ultram therapy, which she apparently uses only rarely, with the patient cautioned to avoid using this medication. Various therapeutic options were discussed on 11/18 with the patient, who is requesting additional day of observation and further medication adjustment. Note recently diagnosed diabetic gastroenteropathy. Continue to observe closely by regular providers with further GI workup depending on her clinical course. Continue IV fluids. Note history of renal cysts and chronic microscopic hematuria with no current UTI symptoms, colic, history of urolithiasis, etc. Urine specimen set up for culture and sensitivity with results still pending.. Note resolution of previous leukocytosis on admission. Note 1.6 g drop of the patient's hemoglobin secondary to IV hydration as above with no current anemia, evidence of acute GI bleed, etc.. The patient did have a normal bowel movement yesterday. Qualifiers: Vomiting Intractability: non-intractable (2) COPD (chronic obstructive pulmonary disease) SNOMED Code(s): 79138658 ICD Code: J44.9 - CHRONIC OBSTRUCTIVE PULMONARY DISEASE, UNSPECIFIED Status: Chronic Priority: Medium Current Visit: Yes Problem Details: No recent fever or bronchitic type symptoms. Qualifiers: COPD type: emphysema Emphysema type: panlobular Qualified Code(s): J43.1 - Panlobular emphysema (3) Hypomagnesemia SNOMED Code(s): 221876806 ICD Code: E83.42 - HYPOMAGNESEMIA Status: Chronic Priority: Medium Current Visit: Yes Problem Details: Decreased magnesium level of 1.6 on 11/17. Patient informed that level will likely drop further due to IV fluids. She refused previously ordered 1 g of magnesium supplement IV Mag supplementation in the emergency room saying that her telehealth nurse educator counseled her against it. Magnesium level normal on 11/18 without supplementation. (4) IDDM (insulin dependent diabetes mellitus) SNOMED Code(s): 32280220 ICD Code: [id number] - Status: Chronic Priority: Medium Current Visit: Yes Problem Details: Note current insulin pump therapy. Observe blood sugar trends as patient is not taking in her usual amount of daily calories. (5) GERD (gastroesophageal reflux disease) SNOMED Code(s): 759343556 ICD Code: K21.9 - GASTRO-ESOPHAGEAL REFLUX DISEASE WITHOUT ESOPHAGITIS Status: Chronic Priority: Medium Current Visit: Yes Problem Details: Stable by history Qualifiers: Esophagitis presence: without esophagitis Qualified Code(s): K21.9 - Gastro-esophageal reflux disease without esophagitis (6) Renal cyst SNOMED Code(s): 778203941 ICD Code: N28.1 - CYST OF KIDNEY, ACQUIRED Status: Chronic Priority: Medium Current Visit: Yes Problem Details: As above. Note status post hysterectomy. (7) Hypocalcemia SNOMED Code(s): 6926112 ICD Code: E83.51 - HYPOCALCEMIA Status: Acute Priority: Medium Current Visit: Yes Onset Date: 11/20/19 Problem Details: Observe for now. Close follow-up by regular provider with increase of her previous calcium supplementation depending on her clinical course. (8) Hypoalbuminemia SNOMED Code(s): 690499652 ICD Code: E88.09 - OTH DISORDERS OF PLASMA-PROTEIN METABOLISM, NEC Status: Acute Priority: Medium Current Visit: Yes Onset Date: 11/18/19 Problem Details: Observe for now. Consider high-protein Glucerna supplements. (9) Dehydration SNOMED Code(s): 85953678 ICD Code: E86.0 - DEHYDRATION Status: Acute Priority: High Current Visit: Yes Onset Date: ~11/18/19 Problem Details: Resolved with aggressive IV rehydration during this hospitalization as above. - Patient Summary/Data Operative Procedure(s) Performed: None Complications: None Consults: None Labs Pending at D/C: 1. Urine culture and sensitivity results 2. Final x-ray report for acute abdominal x-rays from 11/20/19 Recommended Follow-up Testing/Procedures: As per discharge instructions Planned Operative Procedure(s) after DC: None Hospital Course: The patient was placed in observation status with treatment as above in including IV hydration, medication adjustment, etc.. Note improvement with regularly scheduled Reglan with this medication to be used in the future with discretion as above. Symptoms significantly improved at time of discharge. No further complications during this hospitalization. - Patient Instructions Diet: Heart Healthy Diet, Diabetic Diet (2000-calorie ADA) Diet, Other: High-fiber Activity: As Tolerated Driving: May Drive Today Showering/Bathing: May Shower Notify Provider of: Fever, Increased Pain, Nausea and/or Vomiting Other/Special Instructions: 1. Followup with your regular provider in 7-10 days as directed for reevaluation and recommended repeat CBC, comprehensive metabolic panel, and magnesium level. Bring these discharge instructions with you to that visit. 2. Use Ultram and Reglan with discretion as discussed. 3. Work excuse- See Form. 4. Stop all tobacco use JESSE as directed/per provided information and consider contacting [employer]uit [facility]ne, etc.. 5. Immediately after this visit veri fy that your cellular telephone's voicemail has been activated and is empty. Also verify that your home telephone's answering machine is operating properly and has space to receive messages. Note that it is sometimes necessary for us to be able to contact you at a later date to discuss your medical care. 6. Please remember that we are ALWAYS here for you and want to answer any questions you may have. Feel free to call the hospital any time and we call you back JESSE. SYMPTOMS TO LOOK OUT FOR: You have been hospitalized for your abdominal disease/diabetic gastroenteropathy as discussed. You should look out for the following symptoms after discharge: 1. Make absolutely certain that you completely understand the reasons you are taking any of your new and/or old medications and/or supplements as discussed with you by the nurse at time of discharge. This includes possible side effects versus interactions between your medications and/or supplements. Don't be afraid to take extra time to ask any questions or express any concerns, because that is what we are here for. It is very important to us that you understand your care. 2. Notify this facility, telephone number [phone], and/or your regular provider JESSE if you experience any of the following symptoms: a. Any increased abdominal pain, heartburn, nausea, vomiting, etc., which has changed since sure hospital discharge and is not responding to medications and/or supplements you have been prescribed. b. Any change in bowel habits, including more than 5 watery stools per day, severe constipation with no excellent bowel movements every 2 days after discharge, and/or any change in your normal bowel habits. c. Any sudden onset of change of your stool appearance, including blood, black tarry stools, etc. as discussed at discharge. d. Any persistent fever equal to or greater than 100.5 degrees, which does not respond to recommended doses of Tylenol, ibuprofen, Aleve, or other previously prescribed fever medications. - Discharge Plan *PRESCRIPTION DRUG MONITORING PROGRAM REVIEWED*: Not Applicable *COPY OF PRESCRIPTION DRUG MONITORING REPORT IN PATIENT HENOK: Not Applicable Home Medications: Home Meds Aspirin 81 mg PO DAILY 12/23/15 [History] Gabapentin [Neurontin] 300 mg PO BID 12/23/15 [History] Insulin Aspart [NovoLOG] 50 units SUBCUT ASDIRECTED 12/23/15 [History] Multivitamin [Multi-Vitamin Daily] 1 tab PO DAILY 12/23/15 [History] SUMAtriptan [Imitrex] 100 mg PO DAILY PRN 12/23/15 [History] Simvastatin [Zocor] 40 mg PO BEDTIME 12/23/15 [History] Tolterodine [Detrol] 2 mg PO BID 12/23/15 [History] Albuterol [Ventolin HFA] 2 puff INH Q4H PRN 09/11/17 [History] traMADol [Ultram] 50 mg PO Q6H PRN 09/11/17 [History] Omeprazole 20 mg PO DAILY 12/04/17 [History] Calcium Carb, Citrate/Vit D3 [Calcium + D3 ER Tablet] 1 each PO DAILY 11/18/19 [History] DULoxetine [Cymbalta] 60 mg PO DAILY 11/18/19 [History] Hydrocort/Neomycin/Polymyxin B [Cortisporin Otic Soln] 10 ml .XX QID PRN 11/18/19 [History] Metoclopramide HCl [Reglan] 10 mg PO QID PRN #1 11/20/19 [Rx] Oxygen Therapy Mode: Room Air Patient Handouts: Abdominal Pain, Adult, [id number], Steps to Quit Smoking, [id number], Health Risks of Smoking Forms: ED Department Discharge, Return to Work/Inpatient LLN Referrals: Darshana Almeida PA-C [Primary Care Provider] - - Discharge Summary/Plan Comment DC Time >30 min.: Yes (Coordination of care ) Discharge Summary/Plan Comment: As above. Extensive precautions were given to the patient, who is in agreement with the treatment plan. See Patient Instructions for further treatment and plan. - General Info Date of Service: 11/20/19 Admission Dx/Problem (Free Text: 1. Nausea/emesis 2. Hydration 3. IDDM with gastroenteropathy Functional Status: Reports: Pain Controlled, Tolerating Diet, Ambulating, Urinating. Denies: New Symptoms, Incentive Spirometry Numeric/FACES Score: 2 (Table intermittent chronic abdominal) - Review of Systems General: Reports: No Symptoms. Denies: Fever, Weakness, Fatigue, Malaise, Chills, Night Sweats, Appetite HEENT: Reports: No Symptoms. Denies: Ear Pain, Eye Pain, Headaches, Post Nasal Drip, Sinus Congestion, Sore Throat, Rhinitis, Visual Changes Pulmonary: Reports: No Symptoms. Denies: Shortness of Breath, Pleuritic Chest Pain, Cough, Sputum, Hemoptysis, Wheezing Cardiovascular: Reports: No Symptoms. Denies: Chest Pain, Palpitations, Dyspnea on Exertion, Orthopnea, Edema, Lightheadedness Gastrointestinal: Reports: Abdominal Pain (Stable chronic cramping as above), Other (Normal bowel movement yesterday). Denies: Constipation, Decreased Appetite, Diarrhea, Difficulty Swallowing, Flatus, Hematochezia, Melena, Nausea, Vomiting Genitourinary: Reports: No Symptoms. Denies: Dysuria, Frequency, Burning, Urgency, Incontinence, Hematuria, Retention, Flank Pain Musculoskeletal: Reports: No Symptoms. Denies: Neck Pain, Shoulder Pain, Arm Pain, Back Pain, Leg Pain Skin: Reports: No Symptoms. Denies: Diaphoresis, Bruising, Pruritis, Rash Neurological: Reports: Numbness (Stable chronic), Paresthesia (As above), Tingling (As above). Denies: Confusion, Dizziness, Headache, Weakness Psychiatric: Reports: No Symptoms. Denies: Confusion, Depression, Anxiety, Agitation, Cravings, Hallucinations - Patient Data Vitals - Most Recent: Last Vital Signs Temp 36.9 C 11/20/19 07:31 Pulse 66 11/20/19 07:31 Resp 16 11/20/19 07:31 BP 139/85 11/20/19 07:31 Pulse Ox 96 11/20/19 07:31 Vital Signs - 24 hr 11/19/19 11/20/19 11/20/19 16:00 00:00 07:31 Temperature [ 37.0 C 36.1 C 36.9 C Temporal] Pulse, 54 L 60 66 Peripheral [ Pulse Oximetry] Respiratory 14 14 16 Rate Blood Pressure 131/79 132/74 139/85 [Left Upper Arm ] O2 Sat by Pulse 97 96 96 Oximetry Weight - Most Recent: 96.026 kg I&O - Last 24 hours: Intake & Output 11/19/19 11/20/19 11/20/19 22:59 06:59 14:59 Intake Total 1073 Output Total 500 1904 Balance 573 -1904 Imaging Impressions - Last 24 hrs: Acute abdominal x-rays from 11/20/19 showed moderate diffuse stool with no gaseous distention, fluid levels, ileus, free air, pulmonary infiltrates, cardiomegaly, CHF, pneumothorax, etc. Lab Results - Last 24 hrs: Laboratory Results - last 24 hr 11/20/19 11/20/19 Range/Units 07:16 07:16 WBC 5.9 (4.0-10.2) K/uL RBC 4.23 (3.77-5.09) M/uL Hgb 13.0 (11.7-15.5) g/dL Hct 39.0 (34.0-46.0) % MCV 92.2 (84.0-98.0) fL MCH 30.7 (28.2-33.3) pg MCHC 33.3 (31.7-36.0) g/dL RDW 12.9 (11.2-14.1) % Plt Count 233 (150-350) K/uL Neut % (Auto) 45.5 (45.0-80.0) % Lymph % (Auto) 37.3 (10.0-50.0) % [place] % (Auto) 9.6 (2.0-14.0) % Eos % (Auto) 6.9 H (0.0-5.0) % Baso % (Auto) 0.7 (0.0-2.0) % Neut # (Auto) 2.69 (1.40-7.00) K/uL Lymph # (Auto) 2.21 (0.50-3.50) K/uL [place] # (Auto) 0.57 (0.00-1.00) K/uL Eos # (Auto) 0.41 (0.00-0.50) K/uL Baso # (Auto) 0.04 (0.00-0.20) K/uL Sodium 142 (136-145) mmol/L Potassium 3.7 (3.5-5.1) mmol/L Chloride 108 H (98-107) mmol/L Carbon Dioxide 28.1 (21.0-32.0) mmol/L BUN 7 (7-18) mg/dL Creatinine 0.72 (0.51-1.17) mg/dL Est Cr Clr Drug Dosing 97.69 mL/min Estimated GFR (MDRD) > 60 mL/min Glucose 107 H (74-106) mg/dL Calcium 8.1 L (8.5-10.1) mg/dL Total Bilirubin 0.4 (0.2-1.0) mg/dL AST 23 (15-37) U/L ALT 17 (12-78) U/L Alkaline Phosphatase 74 (46-116) IU/L Total Protein 5.7 L (6.4-8.2) g/dL Albumin 2.7 L (3.4-5.0) g/dL Amylase 9 L (25-115) U/L Lipase 35 L (73-393) U/L Laboratory Tests 11/18/19 11/18/19 11/18/19 Range/Units 10:56 11:10 11:10 WBC 11.5 H (4.0-10.2) K/uL RBC 4.69 (3.77-5.09) M/uL Hgb 14.6 (11.7-15.5) g/dL Hct 43.6 (34.0-46.0) % MCV 93.0 (84.0-98.0) fL MCH 31.1 (28.2-33.3) pg MCHC 33.5 (31.7-36.0) g/dL RDW 13.7 (11.2-14.1) % Plt Count 250 (150-350) K/uL Neut % (Auto) 73.2 (45.0-80.0) % Lymph % (Auto) 16.8 (10.0-50.0) % [place] % (Auto) 7.5 (2.0-14.0) % Eos % (Auto) 2.1 (0.0-5.0) % Baso % (Auto) 0.4 (0.0-2.0) % Neut # (Auto) 8.41 H (1.40-7.00) K/uL Lymph # (Auto) 1.93 (0.50-3.50) K/uL [place] # (Auto) 0.86 (0.00-1.00) K/uL Eos # (Auto) 0.24 (0.00-0.50) K/uL Baso # (Auto) 0.05 (0.00-0.20) K/uL Sodium 143 (136-145) mmol/L Potassium 3.9 (3.5-5.1) mmol/L Chloride 105 (98-107) mmol/L Carbon Dioxide 29.5 (21.0-32.0) mmol/L BUN 15 (7-18) mg/dL Creatinine 0.85 (0.51-1.17) mg/dL Est Cr Clr Drug Dosing TNP Estimated GFR (MDRD) > 60 mL/min Glucose 185 H (74-106) mg/dL Lactic Acid (0.4-2.0) mmol/L Calcium 9.3 (8.5-10.1) mg/dL Magnesium 1.6 L (1.8-2.4) mg/dL Total Bilirubin 0.7 (0.2-1.0) mg/dL AST 17 (15-37) U/L ALT 20 (12-78) U/L Alkaline Phosphatase 99 (46-116) IU/L Total Protein 7.0 (6.4-8.2) g/dL Albumin 3.3 L (3.4-5.0) g/dL Amylase (25-115) U/L Lipase (73-393) U/L Specimen Type Urinblad Urine Color Yellow Urine Appearance Slightly cloudy Urine pH 6.0 (5.0-9.0) Ur Specific [place] 1.025 (1.005-1.030) Urine Protein 30 H (NEGATIVE) mg/dL Urine Glucose (UA) Negative (NEGATIVE) mg/dL Urine Ketones >=160 H (NEGATIVE) mg/dL Urine Occult Blood Large H (NEGATIVE) Urine Nitrite Negative (NEGATIVE) Urine Bilirubin Moderate H (NEGATIVE) Urine Urobilinogen 0.2 (0.2-1.0) E.U./dL Ur Leukocyte Esterase Negative (NEGATIVE) U Hyaline Cast (Auto) Few Urine RBC 30-40 H /HPF Urine WBC 0-5 /HPF Ur Epithelial Cells Moderate H /LPF Amorphous Sediment Few (0/HPF) /HPF Urine Bacteria Moderate H (NONE TO FEW) /HPF Granular Casts (Auto) Moderate Urine Mucus Few H (NEGATIVE) /LPF Ketones 11/18/19 11/18/19 11/19/19 Range/Units 11:10 11:10 07:15 WBC (4.0-10.2) K/uL RBC (3.77-5.09) M/uL Hgb (11.7-15.5) g/dL Hct (34.0-46.0) % MCV (84.0-98.0) fL MCH (28.2-33.3) pg MCHC (31.7-36.0) g/dL RDW (11.2-14.1) % Plt Count (150-350) K/uL Neut % (Auto) (45.0-80.0) % Lymph % (Auto) (10.0-50.0) % [place] % (Auto) (2.0-14.0) % Eos % (Auto) (0.0-5.0) % Baso % (Auto) (0.0-2.0) % Neut # (Auto) (1.40-7.00) K/uL Lymph # (Auto) (0.50-3.50) K/uL [place] # (Auto) (0.00-1.00) K/uL Eos # (Auto) (0.00-0.50) K/uL Baso # (Auto) (0.00-0.20) K/uL Sodium 146 H (136-145) mmol/L Potassium 3.9 (3.5-5.1) mmol/L Chloride 111 H (98-107) mmol/L Carbon Dioxide 29.8 (21.0-32.0) mmol/L BUN 10 (7-18) mg/dL Creatinine 0.79 (0.51-1.17) mg/dL Est Cr Clr Drug Dosing 89.03 Estimated GFR (MDRD) > 60 mL/min Glucose 106 (74-106) mg/dL Lactic Acid 1.1 (0.4-2.0) mmol/L Calcium 8.4 L (8.5-10.1) mg/dL Magnesium 1.8 (1.8-2.4) mg/dL Total Bilirubin (0.2-1.0) mg/dL AST (15-37) U/L ALT (12-78) U/L Alkaline Phosphatase (46-116) IU/L Total Protein (6.4-8.2) g/dL Albumin (3.4-5.0) g/dL Amylase (25-115) U/L Lipase (73-393) U/L Specimen Type Urine Color Urine Appearance Urine pH (5.0-9.0) Ur Specific [place] (1.005-1.030) Urine Protein (NEGATIVE) mg/dL Urine Glucose (UA) (NEGATIVE) mg/dL Urine Ketones (NEGATIVE) mg/dL Urine Occult Blood (NEGATIVE) Urine Nitrite (NEGATIVE) Urine Bilirubin (NEGATIVE) Urine Urobilinogen (0.2-1.0) E.U./dL Ur Leukocyte Esterase (NEGATIVE) U Hyaline Cast (Auto) Urine RBC /HPF Urine WBC /HPF Ur Epithelial Cells /LPF Amorphous Sediment (0/HPF) /HPF Urine Bacteria (NONE TO FEW) /HPF Granular Casts (Auto) Urine Mucus (NEGATIVE) /LPF Ketones Negative 11/19/19 11/20/19 11/20/19 Range/Units 07:15 07:16 07:16 WBC 6.0 5.9 (4.0-10.2) K/uL RBC 4.36 4.23 (3.77-5.09) M/uL Hgb 13.4 13.0 (11.7-15.5) g/dL Hct 40.9 39.0 (34.0-46.0) % MCV 93.8 92.2 (84.0-98.0) fL MCH 30.7 30.7 (28.2-33.3) pg MCHC 32.8 33.3 (31.7-36.0) g/dL RDW 13.4 12.9 (11.2-14.1) % Plt Count 233 233 (150-350) K/uL Neut % (Auto) 36.3 L 45.5 (45.0-80.0) % Lymph % (Auto) 43.2 37.3 (10.0-50.0) % [place] % (Auto) 10.4 9.6 (2.0-14.0) % Eos % (Auto) 9.4 H 6.9 H (0.0-5.0) % Baso % (Auto) 0.7 0.7 (0.0-2.0) % Neut # (Auto) 2.17 2.69 (1.40-7.00) K/uL Lymph # (Auto) 2.58 2.21 (0.50-3.50) K/uL [place] # (Auto) 0.62 0.57 (0.00-1.00) K/uL Eos # (Auto) 0.56 H 0.41 (0.00-0.50) K/uL Baso # (Auto) 0.04 0.04 (0.00-0.20) K/uL Sodium 142 (136-145) mmol/L Potassium 3.7 (3.5-5.1) mmol/L Chloride 108 H (98-107) mmol/L Carbon Dioxide 28.1 (21.0-32.0) mmol/L BUN 7 (7-18) mg/dL Creatinine 0.72 (0.51-1.17) mg/dL Est Cr Clr Drug Dosing 97.69 Estimated GFR (MDRD) > 60 mL/min Glucose 107 H (74-106) mg/dL Lactic Acid (0.4-2.0) mmol/L Calcium 8.1 L (8.5-10.1) mg/dL Magnesium (1.8-2.4) mg/dL Total Bilirubin 0.4 (0.2-1.0) mg/dL AST 23 (15-37) U/L ALT 17 (12-78) U/L Alkaline Phosphatase 74 (46-116) IU/L Total Protein 5.7 L (6.4-8.2) g/dL Albumin 2.7 L (3.4-5.0) g/dL Amylase 9 L (25-115) U/L Lipase 35 L (73-393) U/L Specimen Type Urine Color Urine Appearance Urine pH (5.0-9.0) Ur Specific [place] (1.005-1.030) Urine Protein (NEGATIVE) mg/dL Urine Glucose (UA) (NEGATIVE) mg/dL Urine Ketones (NEGATIVE) mg/dL Urine Occult Blood (NEGATIVE) Urine Nitrite (NEGATIVE) Urine Bilirubin (NEGATIVE) Urine Urobilinogen (0.2-1.0) E.U./dL Ur Leukocyte Esterase (NEGATIVE) U Hyaline Cast (Auto) Urine RBC /HPF Urine WBC /HPF Ur Epithelial Cells /LPF Amorphous Sediment (0/HPF) /HPF Urine Bacteria (NONE TO FEW) /HPF Granular Casts (Auto) Urine Mucus (NEGATIVE) /LPF Ketones ADEN Results - Last 24 hrs: Urine for culture and sensitivity still pending. Med Orders - Current: Current Medications Albuterol (Ventolin Hfa) 0 gm INH Q4H PRN PRN Reason: Shortness of Breath Duloxetine HCl (Cymbalta) 60 mg PO DAILY [facility] Last Admin: 11/20/19 07:33 Dose: 60 mg Documented by: Gabapentin (Neurontin) 300 mg PO BID [facility] Last Admin: 11/20/19 07:33 Dose: 300 mg Documented by: Hydroxyzine HCl (Atarax) 25 mg PO ASDIRECTED PRN PRN Reason: N/V Lactated Ringer's (Ringers, Lactated) 1,000 mls @ 100 mls/hr IV ASDIRECTED [facility] Last Admin: 11/19/19 22:54 Dose: 100 mls/hr Documented by: Metoclopramide HCl (Reglan) 10 mg IVPUSH QID [facility] Last Admin: 11/20/19 07:34 Dose: 10 mg Documented by: Miscellaneous Information (Remove Patch) 1 ea TRDERM DAILY [facility] Last Admin: 11/20/19 07:35 Dose: 1 ea Documented by: Nicotine (Habitrol) 21 mg TRDERM DAILY [facility] Last Admin: 11/20/19 07:35 Dose: 21 mg Documented by: Non-Formulary Medication (Insulin Aspart) 50 units SUBCUT ASDIRECTED [facility] Omeprazole (Omeprazole) 20 mg PO DAILY [facility] Last Admin: 11/20/19 07:33 Dose: 20 mg Documented by: Ondansetron HCl (Zofran) 4 mg IVPUSH Q6H PRN PRN Reason: Nausea/Vomiting Last Admin: 11/19/19 10:08 Dose: 4 mg Documented by: Sodium Chloride (Saline Flush) 10 ml FLUSH ASDIRECTED PRN PRN Reason: Keep Vein Open Last Admin: 11/20/19 07:37 Dose: 10 ml Documented by: Sodium Chloride (Saline Flush) 10 ml FLUSH ASDIRECTED PRN PRN Reason: Keep Vein Open Trospium (Sanctura) 20 mg PO BID [facility] Last Admin: 11/20/19 07:33 Dose: 20 mg Documented by: Discontinued Medications Magnesium Sulfate/Dextrose 1 (gm/ Premix) 100 mls @ 100 mls/hr IV ONETIME ONE Stop: 11/18/19 12:49 Last Admin: 11/18/19 13:34 Dose: Not Given Documented by: Sodium Chloride (Normal Saline) 1,000 mls @ 999 mls/hr IV .BOLUS ONE Stop: 11/18/19 12:50 Last Admin: 11/18/19 12:12 Dose: 999 mls/hr Documented by: Sodium Chloride (Normal Saline) 1,000 mls @ 250 mls/hr IV .BOLUS ONE Stop: 11/18/19 18:14 Last Admin: 11/18/19 14:48 Dose: 250 mls/hr Documented by: Metoclopramide HCl (Reglan) 10 mg PO TID PRN PRN Reason: EATING Ondansetron HCl (Zofran) 4 mg IVPUSH ONETIME ONE Stop: 11/18/19 11:51 Last Admin: 11/18/19 12:12 Dose: 4 mg Documented by: Tramadol HCl (Ultram) 50 mg PO Q6H PRN PRN Reason: Pain - Exam Quality Assessment: Reports: DVT Prophylaxis. Denies: Supplemental Oxygen, Central Line/PICC, Urine Catheter, Skin Breakdown, Restraints General: Reports: Alert, Oriented, Cooperative, No Acute Distress HEENT: Reports: Pupils Equal, Pupils Reactive, EOMI, Mucous Membr. Moist/[place]. Denies: Scleral Icterus Neck: Reports: Supple, Trachea Midline, No JVD, No Thyromegaly, +2 Carotid Pulse wo Bruit. Denies: Lymphadenopathy Lungs: Reports: Clear to Auscultation, Normal Respiratory Effort. Denies: Rub Cardiovascular: Reports: Regular Rate, Regular Rhythm, No Murmurs. Denies: Gallops, Rubs GI/Abdominal Exam: Normal Bowel Sounds, Soft, Non-Tender, No Organomegaly, No Distention, No Abnormal Bruit, No Mass. No: Guarding (Female) Exam: Deferred Rectal (Female) Exam: Deferred Back Exam: Reports: Normal Inspection, Full Range of Motion. Denies: CVA Tenderness (L), CVA Tenderness (R), Muscle Spasm Extremities: Normal Inspection, Normal Range of Motion, Non-Tender, No Pedal Edema, Normal Capillary Refill. No: Saulo's Sign Skin: Reports: Warm, Dry, Intact. Denies: Ecchymosis Neurological: Reports: No New Focal Deficit Psy/Mental Status: Reports: Alert, Normal Affect, Normal Mood. Denies: Anxious, Depressed, Agitated, Hallucinations, Withdrawal Symptoms
== END 2019-11-20 10:48 | disposition home or self-care (01) ==
LOC: LL.ED 10:37 → UNDOADMOB 13:14 → LL.MS 13:14
PROVIDERS: ADMIT Emergency Medicine; ATTEND Emergency Medicine
DX: E86.0 Dehydration (principal); E10.69 Type 1 diabetes mellitus with other specified complication; K52.9 Noninfective gastroenteritis and colitis, unspecified; J43.1 Panlobular emphysema; E83.42 Hypomagnesemia; K21.9 Gastro-esophageal reflux disease without esophagitis; N28.1 Cyst of kidney, acquired; E83.51 Hypocalcemia; E88.09 Other disorders of plasma-protein metabolism, not elsewhere classified; F17.210 Nicotine dependence, cigarettes, uncomplicated; K44.9 Diaphragmatic hernia without obstruction or gangrene; E10.42 Type 1 diabetes mellitus with diabetic polyneuropathy; N32.81 Overactive bladder; G43.909 Migraine, unspecified, not intractable, without status migrainosus; Z79.899 Other long term (current) drug therapy; Z79.82 Long term (current) use of aspirin; Z88.0 Allergy status to penicillin; Z88.1 Allergy status to other antibiotic agents; Z88.5 Allergy status to narcotic agent; Z88.8 Allergy status to other drugs, medicaments and biological substances; Z88.2 Allergy status to sulfonamides
CPT/HCPCS: 36415; 74019; 74022; 80048; 80053; 81001; 82009; 82150; 83605; 83690; 83735; 85025; 96361; 96374; 96375; 96376; 99285-25; A9270-GY; G0378; J2405; J2765; J7030; J7120

== ENCOUNTER 2020-08-06 21:51 | Inpatient (IN) | payer OTHER ==
[2020-08-06] MEDS ORDERED: Sodium Chloride 0.9% 10 ML Syringe FLUSH PRN (21:55)
[2020-08-06] MEDS ORDERED: Ondansetron 4 MG/2 ML SDV IVPUSH ONE (21:56)
--- NOTE | 2020-08-06 22:48 | EDM.PDOC ---
ED HPI GENERAL MEDICAL PROBLEM - General Chief Complaint: Gastrointestinal Problem Stated Complaint: vomiting Time Seen by Provider: 08/06/20 22:15 Source of Information: Reports: Patient, Family History Limitations: Reports: No Limitations - History of Present Illness INITIAL COMMENTS - FREE TEXT/NARRATIVE: Patient comes to ER with suspected gastroparesis. Has been vomiting for several days. Seen in clinic yesterday and received Zofran. Had abdominal CT that was unremarkable. Has history of gastroparesis secondary to Type 1 DM. Last severe episode was last year. Required 3 days stay in hospital. This feels like previous bouts with gastroparesis. Reports that it affects her to some extent on daily basis, and has reduced a lot of her meal intake to shake form. No c hanges noted from usual pattern. Has not had bowel movement today. Denies UTI complaints/fevers. Treatments ASSEMBLER TYPE BAR AND SEGMENT: Reports: Other Medication(s) Right Lower Abdomen Pain Score (Numeric/FACES): 4 - Related Data Allergies Allergy/AdvReac Type Severity Reaction Status Date / Time aloe Allergy Hives Verified 06/17/18 18:59 amoxicillin trihydrate Allergy Yeast Verified 06/17/18 18:59 [From Augmentin] Infection erythromycin base Allergy Cannot Verified 06/17/18 18:59 Remember hydrocodone Allergy Cannot Verified 06/17/18 18:59 Remember imipramine Allergy Headache Verified 06/17/18 18:59 oxycodone Allergy Nausea and Verified 06/17/18 18:59 Vomiting potassium clavulanate Allergy Yeast Verified 06/17/18 18:59 [From Augmentin] Infection Sulfa (Sulfonamide Allergy Rash Verified 06/17/18 18:59 Antibiotics) sulfasalazine Allergy Rash Verified 06/17/18 18:59 liver Allergy Vomiting Uncoded 08/06/20 22:26 Home Meds: Home Meds Aspirin 81 mg PO DAILY 12/23/15 [History] Gabapentin [Neurontin] 300 mg PO BID 12/23/15 [History] Insulin Aspart [NovoLOG] 50 units SUBCUT ASDIRECTED 12/23/15 [History] Multivitamin [Multi-Vitamin Daily] 1 tab PO DAILY 12/23/15 [History] SUMAtriptan [Imitrex] 100 mg PO DAILY PRN 12/23/15 [History] Simvastatin [Zocor] 40 mg PO BEDTIME 12/23/15 [History] Tolterodine [Detrol] 2 mg PO BID 12/23/15 [History] Albuterol [Ventolin HFA] 2 puff INH Q4H PRN 09/11/17 [History] traMADol [Ultram] 50 mg PO Q6H PRN 09/11/17 [History] Omeprazole 20 mg PO DAILY 12/04/17 [History] Calcium Carb, Citrate/Vit D3 [Calcium + D3 ER Tablet] 1 each PO BID 11/18/19 [History] DULoxetine [Cymbalta] 60 mg PO DAILY 11/18/19 [History] Hydrocort/Neomycin/Polymyxin B [Cortisporin Otic Soln] 10 ml .XX QID PRN 11/18/19 [History] Metoclopramide HCl [Reglan] 10 mg PO QID PRN #1 11/20/19 [Rx] LORazepam [Ativan] 0.25 mg PO QID PRN 08/06/20 [History] Past Medical History HEENT History: Reports: Impaired Vision, Sinusitis Cardiovascular History: Reports: High Cholesterol Respiratory History: Reports: Bronchitis, Recurrent, Intubation, Previous Gastrointestinal History: Reports: GERD, Hemorrhoids, Hiatal Hernia, Other (See Below) Other Gastrointestinal History: polyp in stomach Genitourinary History: Reports: Other (See Below) Other Genitourinary History: Cyst on right ovary with ovary removed: Overactive bladder CAT SITTER History: Reports: , Spontaneous Musculoskeletal History: Reports: Arthritis, Osteoarthritis Neurological History: Reports: Concussion, Migraines Psychiatric History: Reports: Anxiety, Depression, Panic Attack Endocrine/Metabolic History: Reports: Diabetes, Type I, Other (See Below) Other Endocrine/Metabolic History: insulin pump for 11 years Insulin Pump Model and Customer Complaint Service Supervisor: tandem t-slim, control IQ - Infectious Disease History Infectious Disease History: Reports: Chicken Pox, Influenza, Shingles - Past Surgical History Head Surgeries/Procedures: Reports: None HEENT Surgical History: Reports: None Cardiovascular Surgical History: Reports: None Respiratory Surgical History: Reports: None GI Surgical History: Reports: Appendectomy, EGD, Hernia, Inguinal, Hernia Repair/Other Female Surgical History: Reports: Oophorectomy, Tubal Ligation Endocrine Surgical History: Reports: None Neurological Surgical History: Reports: None Musculoskeletal Surgical History: Reports: Other (See Below) Other Musculoskeletal Surgeries/Procedures:: right thumb joint replacement, left ulnar nerve relocation, right foot bone removal. Dermatological Surgical History: Reports: None Social & Family History - Family History Family Medical History: No Pertinent Family History Cardiac: Reports: Heart Failure Respiratory: Reports: None GI: Reports: None Musculoskeletal: Reports: None Endocrine/Metabolic: Reports: Diabetes, type II, Hypothyroidism Hematologic: Reports: None Immunologic: Reports: None Oncologic: Reports: None - Tobacco Use Tobacco Use Status *Q: Current Every Day Tobacco User Years of Tobacco use: 35 Packs/Tins Daily: 1 - Caffeine Use Caffeine Use: Reports: Coffee Other Caffeine Use: 2-3 pops per day - Recreational Drug Use Recreational Drug Use: No ED ROS GENERAL - Review of Systems Review Of Systems: See Below Constitutional: Reports: Malaise, Fatigue, Decreased Appetite. Denies: Fever, Chills, Night Sweats, Diaphoresis HEENT: Reports: No Symptoms Respiratory: Reports: No Symptoms Cardiovascular: Reports: No Symptoms GI/Abdominal: Reports: Abdominal Pain, Nausea, Vomiting. Denies: Constipation, Diarrhea, Distension, Hematemesis, Melena : Reports: No Symptoms Musculoskeletal: Reports: Other (no acute changes from baseline) Skin: Reports: No Symptoms Neurological: Reports: No Symptoms Psychiatric: Reports: No Symptoms ED EXAM, GENERAL - Physical Exam Exam: See Below Exam Limited By: No Limitations General Appearance: Alert, Moderate Distress Eye Exam: Bilateral Eye: EOMI, PERRL Ears: Hearing Grossly Normal Nose: No: Nasal Deformity, Nasal Swelling, Nasal Drainage Throat/Mouth: Normal Lips, Normal Voice, No Airway Compromise Head: Atraumatic, Normocephalic Neck: Supple Respiratory/Chest: No Respiratory Distress, Lungs Clear, Normal Breath Sounds, No Accessory Muscle Use Cardiovascular: No Murmur, Tachycardia GI/Abdominal: Soft, Tender (diffuse discomfort with palpation/more so RLQ), Abnormal Bowel Sounds (diminished). No: Rigid, Rebound (Female) Exam: Deferred Rectal (Female) Exam: Deferred Back Exam: No: CVA Tenderness (L), CVA Tenderness (R), Muscle Spasm, Paraspinal Tenderness, Vertebral Tenderness Extremities: Slow Capillary Refill Neurological: Alert, Oriented, Normal Cognition, No Motor/Sensory Deficits Psychiatric: Anxious Skin Exam: Warm, Dry, Intact, Normal Color Course - Vital Signs Last Recorded V/S: Last Vital Signs Temp 37.3 C 08/06/20 21:55 Pulse 104 H 08/06/20 21:55 Resp 14 08/06/20 21:55 BP 143/79 H 08/06/20 21:55 Pulse Ox 100 08/06/20 21:55 - Orders/Labs/Meds Orders: Active Orders 24 hr Category Date Time Status Peripheral IV Care [RC] . DIRECTED Care 08/06/20 21:55 Active CMP [COMPREHENSIVE METABOLIC PN,CMP] [CHEM] Stat Lab 08/06/20 21:55 Ordered URINALYSIS W/MICROSCOPIC [UA W/MICROSCOPIC] [URIN] Stat Lab 08/06/20 21:56 Ordered Sodium Chloride 0.9% [Saline Flush] Med 08/06/20 21:55 Active 10 ml FLUSH ASDIRECTED PRN Peripheral IV Insertion Adult [OM.PC] Routine Oth 08/06/20 21:55 Ordered Labs: Laboratory Tests 08/06/20 Range/Units 22:05 WBC 12.0 H (4.0-10.2) K/uL RBC 4.68 (3.77-5.09) M/uL Hgb 15.1 (11.7-15.5) g/dL Hct 43.9 (34.0-46.0) % MCV 93.8 (84.0-98.0) fL MCH 32.3 (28.2-33.3) pg MCHC 34.4 (31.7-36.0) g/dL RDW 13.5 (11.2-14.1) % Plt Count 248 (150-350) K/uL Neut % (Auto) 76.1 (45.0-80.0) % Lymph % (Auto) 15.6 (10.0-50.0) % Braxton % (Auto) 6.9 (2.0-14.0) % Eos % (Auto) 1.1 (0.0-5.0) % Baso % (Auto) 0.3 (0.0-2.0) % Neut # (Auto) 9.10 H (1.40-7.00) K/uL Lymph # (Auto) 1.87 (0.50-3.50) K/uL Braxton # (Auto) 0.82 (0.00-1.00) K/uL Eos # (Auto) 0.13 (0.00-0.50) K/uL Baso # (Auto) 0.04 (0.00-0.20) K/uL - Re-Assessments/Exams Free Text/Narrative Re-Assessment/Exam: Normal CT yesterday of abd/pelvis. CBC/Chem/lactic/serum ketones performed. Moderate ketones. Lactic elevated at 3.0 No evidence of acute infection, suspect secondary to dehydration/emesis. Glu 376. WBC 12. Zofran IM given in ER. IV access obtained. Departure - Departure Time of Disposition: 22:42 Disposition: Admitted As Inpatient 65 Condition: Good Clinical Impression: Diabetic gastroparesis associated with type 1 diabetes mellitus - Discharge Information *PRESCRIPTION DRUG MONITORING PROGRAM REVIEWED*: Not Applicable *COPY OF PRESCRIPTION DRUG MONITORING REPORT IN PATIENT HENOK: Not Applicable Referrals: PCP,Unknown [Primary Care Provider] - Sepsis Event Note (ED) - Evaluation Sepsis Screening Result: No Definite Risk - Focused Exam Vital Signs: Vital Signs Temp Pulse Resp BP Pulse Ox 08/06/20 21:55 37.3 C 104 H 14 143/79 H 100 - Problem List & Annotations (1) Diabetic gastroparesis associated with type 1 diabetes mellitus SNOMED Code(s): 806787502 Code(s): E10.43 - TYPE 1 DIABETES W DIABETIC AUTONOMIC (POLY)NEUROPATHY; K31.84 - GASTROPARESIS Status: Acute Priority: High Current Visit: Yes Onset Date: ~08/04/20 Annotation/Comment:: Exacerbation of gastroparesis with secondary dehydration. Receiving IV fluids and is NPO. Consider NG tube if emesis does not improve within short time. Patient declined this option in ER. (2) IDDM (insulin dependent diabetes mellitus) SNOMED Code(s): 69241060 Code(s): HBT6119 - Status: Chronic Priority: Medium Current Visit: No Annotation/Comment:: Note current insulin pump therapy/continuous glucose monitoring. Elevated anion gap/moderate serum ketones noted. Patient wishes to have full control over her insulin and at this point in time does not want us to manage insulin administration. IV fluids have been initiated which will assist in treating this. Continue close monitoring of labs/glucose values and response to interventions. (3) Osteoarthritis SNOMED Code(s): 711841237 Code(s): M19.90 - UNSPECIFIED OSTEOARTHRITIS, UNSPECIFIED SITE Status: Chronic Priority: Low Current Visit: No Annotation/Comment:: stable per history Qualifiers: Osteoarthritis location: unspecified site (4) Hx of migraines SNOMED Code(s): 012223062 Code(s): Z86.69 - PERSONAL HISTORY OF DIS OF THE NERVOUS SYS AND SENSE ORGANS Status: Chronic Priority: Low Current Visit: No Annotation/Comment:: stable per history (5) Anxiety and depression SNOMED Code(s): 981541263 Code(s): F41.9 - ANXIETY DISORDER, UNSPECIFIED; F32.9 - MAJOR DEPRESSIVE DISORDER, SINGLE EPISODE, UNSPECIFIED Status: Chronic Priority: Low Current Visit: No Annotation/Comment:: stable per history (6) Hyperlipidemia SNOMED Code(s): 31916477 Code(s): E78.5 - HYPERLIPIDEMIA, UNSPECIFIED Status: Chronic Priority: L ow Current Visit: No Annotation/Comment:: Follow up with primary provider. Qualifiers: Hyperlipidemia type: unspecified Qualified Code(s): E78.5 - Hyperlipidemia, unspecified (7) Peripheral neuropathy SNOMED Code(s): 890975255 Code(s): G62.9 - POLYNEUROPATHY, UNSPECIFIED Status: Chronic Priority: Low Current Visit: No Annotation/Comment:: stable by history Qualifiers: Peripheral neuropathy type: polyneuropathy, unspecified Qualified Code(s): G62.9 - Polyneuropathy, unspecified (8) GERD (gastroesophageal reflux disease) SNOMED Code(s): 941834143 Code(s): K21.9 - GASTRO-ESOPHAGEAL REFLUX DISEASE WITHOUT ESOPHAGITIS Status: Chronic Priority: Medium Current Visit: No Annotation/Comment:: Stable by history. Also has mild hiatal hernia. Protonix ordered. Qualifiers: Esophagitis presence: without esophagitis Qualified Code(s): K21.9 - Gastro-esophageal reflux disease without esophagitis (9) Overactive bladder SNOMED Code(s): 574605969 Code(s): N32.81 - OVERACTIVE BLADDER Status: Chronic Priority: Low Current Visit: No Annotation/Comment:: Stable by history (10) COPD (chronic obstructive pulmonary disease) SNOMED Code(s): 61931824 Code(s): J44.9 - CHRONIC OBSTRUCTIVE PULMONARY DISEASE, UNSPECIFIED Status: Chronic Priority: Medium Current Visit: No Annotation/Comment:: No recent fever or bronchitic type symptoms. Qualifiers: COPD type: emphysema Emphysema type: panlobular Qualified Code(s): J43.1 - Panlobular emphysema - Problem List Review Problem List Initiated/Reviewed/Updated: Yes - My Orders Last 24 Hours: My Active Orders 08/06/20 21:55 Peripheral IV Care [RC] . DIRECTED CMP [COMPREHENSIVE METABOLIC PN,CMP] [CHEM] Stat Sodium Chloride 0.9% [Saline Flush] 10 ml FLUSH ASDIRECTED PRN Peripheral IV Insertion Adult [OM.PC] Routine 08/06/20 21:56 URINALYSIS W/MICROSCOPIC [UA W/MICROSCOPIC] [URIN] Stat - Assessment/Plan Admission H&P: Please use this note as an admission H&P Last 24 Hours: My Active Orders 08/06/20 21:55 Peripheral IV Care [RC] . DIRECTED CMP [COMPREHENSIVE METABOLIC PN,CMP] [CHEM] Stat Sodium Chloride 0.9% [Saline Flush] 10 ml FLUSH ASDIRECTED PRN Peripheral IV Insertion Adult [OM.PC] Routine 08/06/20 21:56 URINALYSIS W/MICROSCOPIC [UA W/MICROSCOPIC] [URIN] Stat Assessment:: as above Plan: as above. Anticipate 3-4 day stay depending on clinical course and response to current interventions.
[2020-08-06] MEDS ORDERED: Ondansetron 4 MG/2 ML SDV IVPUSH PRN (22:57)
[2020-08-06] MEDS ORDERED: LORazepam 2 MG/ML SDV IV PRN (22:57)
[2020-08-06] MEDS ORDERED: Sodium Chloride 0.9% 500 ML IV SCH (23:00)
[2020-08-06] MEDS ORDERED: SUMAtriptan 50 MG Tab PO PRN (23:02)
[2020-08-06] MEDS ORDERED: traMADol 50 MG Tab PO PRN (23:02)
[2020-08-06] MEDS ORDERED: Albuterol 6.7 GM Inhaler INH PRN (23:02)
[2020-08-06] MEDS ORDERED: Non-Formulary Medication 1 Each (Insulin Aspart 100 UNIT/ML Vial) SUBCUT SCH (23:15)
[2020-08-06] MEDS ORDERED: Sodium Chloride 0.9% 1,000 ML IV SCH (23:15)
[2020-08-06] MEDS: Metoclopramide 10 MG/2 ML SDV IVPUSH SCH (23:27)
[2020-08-07] MEDS ORDERED: Sodium Chloride 0.9% 500 ML IV SCH (00:05)
[2020-08-07] MEDS ORDERED: Insulin Regular, Human 100 Units/ML 3 ML Vial SUBCUT ONE (04:04)
[2020-08-07] MEDS ORDERED: Sodium Chloride 0.9% 1,000 ML IV SCH (05:15)
[2020-08-07] MEDS: Metoclopramide 10 MG/2 ML SDV IVPUSH SCH (05:49)
[2020-08-07 06:06] LABS: PCO2 ARTERIAL,POC 26 mmHg (35-48)
[2020-08-07] MEDS ORDERED: NS + KCl 20mEq/L 1,000 ML IV SCH (06:15)
[2020-08-07] MEDS ORDERED: cefTRIAXone 1 GM in Sodium Chloride 0.9% 100 ML IV ONE (06:56)
--- NOTE | 2020-08-07 07:22 | PCM.DCSUM1 ---
Discharge Summary - Hospital Course HPI Initial Comments: Admitted for treatment of nausea/emesis/dehydration suspected to be secondary to gastroparesis. Diagnosis: Stroke: No - Discharge Data Discharge Date: 08/07/20 Discharge Disposition: DC/Tfer to Acute Hospital 02 Condition: Fair - Referral to Home Health Primary Care Physician: PCP Unknown - Discharge Diagnosis/Problem(s) (1) DKA (diabetic ketoacidoses) SNOMED Code(s): 624621071, 120792154 ICD Code: E11.10 - TYPE 2 DIABETES MELLITUS WITH KETOACIDOSIS WITHOUT COMA Status: Acute Priority: High Current Visit: Yes Problem Details: Patient noted to be developing increased anion gap when evaluated in ER. She and her initially refused transfer to [facility] and instead wanted to be treated with IV fluids only. Also wanted to maintain control of insulin delivery/blood sugars via Dexcom and insulin pump. Patient did receive IV fluids and emesis signficantly improved. Recheck of labs at 6 hours showed that her lactic acid level increased to 3.7 Na/Cl/CO2 normal in ER. CO2 dropped to 18 on repeat lab. Blood sugar increased to 499/patient at that time did not think her pump was working well. She was ok then with SQ insulin. Blood gas showed pH of 7.3 with pCo2 26.3, pO2 72.1, Bicarb 13, base excess -11.6 Insulin drip initiated. Patient and ok with transfer to [facility] after review of lab changes/concerns/potential complications of DKA. Qualifiers: Diabetes mellitus type: type 1 Diabetes mellitus complication detail: without coma Qualified Code(s): E10.10 - Type 1 diabetes mellitus with ketoacidosis without coma (2) Diabetic gastroparesis associated with type 1 diabetes mellitus SNOMED Code(s): 759339735 ICD Code: E10.43 - TYPE 1 DIABETES W DIABETIC AUTONOMIC (POLY)NEUROPATHY; K31.84 - GASTROPARESIS Status: Acute Priority: High Current Visit: Yes Onset Date: ~08/04/20 Problem Details: Chronic issues with poor GI motility/gastroparesis. Patient feels this is exacerbation of her baseline daily issues. Negative abdominal/pelvic CT two days ago. Unable to keep much PO intake down for several days. No loose stools/bowel changes reported. Has chronic abdominal discomfort, more so in RLQ. (3) IDDM (insulin dependent diabetes mellitus) SNOMED Code(s): 50102181 ICD Code: [id number] - Status: Chronic Priority: Medium Current Visit: No Problem Details: Note current insulin pump therapy. Initially refused any extra insulin while receiving IV fluids and wanted instead to manage sugars herself. Did OK receiving extra insulin when blood sugar noted to elevate and ultimately was ok with initiation of Insulin drip. Worsening anion gap noted when labs rechecked. (4) Hyperlipidemia SNOMED Code(s): 03938164 ICD Code: E78.5 - HYPERLIPIDEMIA, UNSPECIFIED Status: Chronic Priority: Low Current Visit: No Problem Details: Follow up with primary provider. Qualifiers: Hyperlipidemia type: unspecified Qualified Code(s): E78.5 - Hyperlipidemia, unspecified (5) Peripheral neuropathy SNOMED Code(s): 963124775 ICD Code: G62.9 - POLYNEUROPATHY, UNSPECIFIED Status: Chronic Priority: Low Current Visit: No Problem Details: stable by history Qualifiers: Peripheral neuropathy type: polyneuropathy, unspecified Qualified Code(s): G62.9 - Polyneuropathy, unspecified (6) GERD (gastroesophageal reflux disease) SNOMED Code(s): 300335679 ICD Code: K21.9 - GASTRO-ESOPHAGEAL REFLUX DISEASE WITHOUT ESOPHAGITIS Status: Chronic Priority: Medium Current Visit: No Problem Details: Stable by history Qualifiers: Esophagitis presence: without esophagitis Qualified Code(s): K21.9 - Gastro-esophageal reflux disease without esophagitis (7) Overactive bladder SNOMED Code(s): 480287144 ICD Code: N32.81 - OVERACTIVE BLADDER Status: Chronic Priority: Low Current Visit: No Problem Details: Stable by history (8) COPD (chronic obstructive pulmonary disease) SNOMED Code(s): 80914832 ICD Code: J44.9 - CHRONIC OBSTRUCTIVE PULMONARY DISEASE, UNSPECIFIED Status: Chronic Priority: Medium Current Visit: No Problem Details: No recent fever or bronchitic type symptoms. Qualifiers: COPD type: emphysema Emphysema type: panlobular Qualified Code(s): J43.1 - Panlobular emphysema (9) Hypomagnesemia SNOMED Code(s): 641504327 ICD Code: E83.42 - HYPOMAGNESEMIA Status: Chronic Priority: Medium Current Visit: No Problem Details: 1.5 at this time. To be addressed by [facility] - Patient Summary/Data Hospital Course: Patient received IV fluids/Zofran/Reglan which helped her symptoms. As noted above both and patient declined transfer to [facility] when suggested given that her serum ketones were elevated and anion gap noted to be increasing. She was admitted here and received IV fluids, but did not want us to manage her insulin/blood sugars. Patient has insulin pump and Dexcom. Glucose 376 in ER. CMP showed normal Na/K/Co2 levels. Lactic 3.0 WBC 12. Blood sugars initially improved but then noted to jump to 499 6 hours after admission. Repeat labs showed Lactic now 3.7 Na/K still normal. Co2 now down to 13. Blood gas ordered and pH 7.3 Patient's WBC increased to 13 and noted to now have low grade temp of 38.3 Vital signs otherwise stable. Lab changes and concerns for worsening DKA explained to patient/. Patient ok with receiving SQ insulin and starting insulin drip and transfer to [facility]. returned to hospital and after lab changes and concerns were explained to him, he also was agreeable with having patient transferred. Call placed to [facility] and patient accepted by . Patient received IV Rocephin prior to [facility]. UA did not show evidence of UTI. - Discharge Plan *PRESCRIPTION DRUG MONITORING PROGRAM REVIEWED*: Not Applicable *COPY OF PRESCRIPTION DRUG MONITORING REPORT IN PATIENT HENOK: Not Applicable Home Medications: Home Meds Aspirin 81 mg PO DAILY 12/23/15 [History] Gabapentin [Neurontin] 300 mg PO BID 12/23/15 [History] Insulin Aspart [NovoLOG] 50 units SUBCUT ASDIRECTED 12/23/15 [History] Multivitamin [Multi-Vitamin Daily] 1 tab PO DAILY 12/23/15 [History] SUMAtriptan [Imitrex] 100 mg PO DAILY PRN 12/23/15 [History] Simvastatin [Zocor] 40 mg PO BEDTIME 12/23/15 [History] Tolterodine [Detrol] 2 mg PO BID 12/23/15 [History] Albuterol [Ventolin HFA] 2 puff INH Q4H PRN 09/11/17 [History] traMADol [Ultram] 50 mg PO Q6H PRN 09/11/17 [History] Omeprazole 20 mg PO DAILY 12/04/17 [History] Calcium Carb, Citrate/Vit D3 [Calcium + D3 ER Tablet] 1 each PO BID 11/18/19 [History] DULoxetine [Cymbalta] 60 mg PO DAILY 11/18/19 [History] Hydrocort/Neomycin/Polymyxin B [Cortisporin Otic Soln] 10 ml .XX QID PRN 11/18/19 [History] Metoclopramide HCl [Reglan] 10 mg PO QID PRN #1 11/20/19 [Rx] LORazepam [Ativan] 0.25 mg PO QID PRN 08/06/20 [History] Forms: ED Department Discharge Referrals: PCP,Unknown [Primary Care Provider] - - Discharge Summary/Plan Comment DC Time >30 min.: No - Patient Data Vitals - Most Recent: Last Vital Signs Temp 38.3 C H 08/07/20 05:22 Pulse 92 08/07/20 05:37 Resp 14 08/07/20 05:22 BP 122/53 L 08/07/20 05:37 Pulse Ox 98 08/07/20 04:10 Weight - Most Recent: 75.206 kg I&O - Last 24 hours: Intake & Output 08/06/20 08/07/20 08/07/20 22:59 06:59 14:59 Intake Total 1160 Output Total 300 Balance 860 Lab Results - Last 24 hrs: Laboratory Results - last 24 hr 08/06/20 08/06/20 08/06/20 Range/Units 22:05 22:05 22:05 WBC 12.0 H (4.0-10.2) K/uL RBC 4.68 (3.77-5.09) M/uL Hgb 15.1 (11.7-15.5) g/dL Hct 43.9 (34.0-46.0) % MCV 93.8 (84.0-98.0) fL MCH 32.3 (28.2-33.3) pg MCHC 34.4 (31.7-36.0) g/dL RDW 13.5 (11.2-14.1) % Plt Count 248 (150-350) K/uL Neut % (Auto) 76.1 (45.0-80.0) % Lymph % (Auto) 15.6 (10.0-50.0) % Sabine % (Auto) 6.9 (2.0-14.0) % Eos % (Auto) 1.1 (0.0-5.0) % Baso % (Auto) 0.3 (0.0-2.0) % Neut # (Auto) 9.10 H (1.40-7.00) K/uL Lymph # (Auto) 1.87 (0.50-3.50) K/uL Sabine # (Auto) 0.82 (0.00-1.00) K/uL Eos # (Auto) 0.13 (0.00-0.50) K/uL Baso # (Auto) 0.04 (0.00-0.20) K/uL POC ABG pH (7.35-7.45) pH POC ABG pCO2 (35-48) mmHg POC ABG pO2 (83-108) mmHg POC ABG HCO3 (22-26) mmol/L POC ABG Total CO2 (23-27) mmol/L POC ABG O2 Sat (95-98) % POC ABG Base Excess (-2-3) mmol/L O2 Delivery Device Oxygen Flow Rate Sodium 136 (136-145) mmol/L Potassium 4.6 (3.5-5.1) mmol/L Chloride 93 L (98-107) mmol/L Carbon Dioxide 23.0 (21.0-32.0) mmol/L BUN 26 H (7-18) mg/dL Creatinine 1.21 H (0.51-1.17) mg/dL Est Cr Clr Drug Dosing 57.48 mL/min Estimated GFR (MDRD) 47 mL/min Glucose 376 H (70-99) mg/dL Lactic Acid 3.0 H (0.4-2.0) mmol/L Calcium 9.9 (8.5-10.1) mg/dL Magnesium (1.8-2.4) mg/dL Total Bilirubin 1.1 H (0.2-1.0) mg/dL AST 18 (15-37) U/L ALT 19 (12-78) U/L Alkaline Phosphatase 89 (46-116) IU/L Total Protein 7.4 (6.4-8.2) g/dL Albumin 3.9 (3.4-5.0) g/dL Specimen Type Urine Color Urine Appearance Urine pH (5.0-9.0) Ur Specific Trimble (1.005-1.030) Urine Protein (NEGATIVE) mg/dL Urine Glucose (UA) (NEGATIVE) mg/dL Urine Ketones (NEGATIVE) mg/dL Urine Occult Blood (NEGATIVE) Urine Nitrite (NEGATIVE) Urine Bilirubin (NEGATIVE) Urine Urobilinogen (0.2-1.0) E.U./dL Ur Leukocyte Esterase (NEGATIVE) U Hyaline Cast (Auto) Urine RBC /HPF Urine WBC /HPF Ur Epithelial Cells /LPF Urine Bacteria (NONE TO FEW) /HPF Ketones 08/06/20 08/07/20 08/07/20 Range/Units 22:05 03:05 05:05 WBC 13.8 H (4.0-10.2) K/uL RBC 4.39 (3.77-5.09) M/uL Hgb 14.0 (11.7-15.5) g/dL Hct 42.6 (34.0-46.0) % MCV 97.0 D (84.0-98.0) fL MCH 31.9 (28.2-33.3) pg MCHC 32.9 (31.7-36.0) g/dL RDW 13.7 (11.2-14.1) % Plt Count 245 (150-350) K/uL Neut % (Auto) 84.1 H (45.0-80.0) % Lymph % (Auto) 9.0 L (10.0-50.0) % Sabine % (Auto) 6.7 (2.0-14.0) % Eos % (Auto) 0.1 (0.0-5.0) % Baso % (Auto) 0.1 (0.0-2.0) % Neut # (Auto) 11.64 H (1.40-7.00) K/uL Lymph # (Auto) 1.24 (0.50-3.50) K/uL Sabine # (Auto) 0.92 (0.00-1.00) K/uL Eos # (Auto) 0.01 (0.00-0.50) K/uL Baso # (Auto) 0.02 (0.00-0.20) K/uL POC ABG pH (7.35-7.45) pH POC ABG pCO2 (35-48) mmHg POC ABG pO2 (83-108) mmHg POC ABG HCO3 (22-26) mmol/L POC ABG Total CO2 (23-27) mmol/L POC ABG O2 Sat (95-98) % POC ABG Base Excess (-2-3) mmol/L O2 Delivery Device Oxygen Flow Rate Sodium (136-145) mmol/L Potassium (3.5-5.1) mmol/L Chloride (98-107) mmol/L Carbon Dioxide (21.0-32.0) mmol/L BUN (7-18) mg/dL Creatinine (0.51-1.17) mg/dL Est Cr Clr Drug Dosing mL/min Estimated GFR (MDRD) mL/min Glucose (70-99) mg/dL Lactic Acid (0.4-2.0) mmol/L Calcium (8.5-10.1) mg/dL Magnesium (1.8-2.4) mg/dL Total Bilirubin (0.2-1.0) mg/dL AST (15-37) U/L ALT (12-78) U/L Alkaline Phosphatase (46-116) IU/L Total Protein (6.4-8.2) g/dL Albumin (3.4-5.0) g/dL Specimen Type Urincc Urine Color Yellow Urine Appearance Clear Urine pH 5.5 (5.0-9.0) Ur Specific Trimble 1.025 (1.005-1.030) Urine Protein Negative (NEGATIVE) mg/dL Urine Glucose (UA) 250 H (NEGATIVE) mg/dL Urine Ketones >=160 H (NEGATIVE) mg/dL Urine Occult Blood Large H (NEGATIVE) Urine Nitrite Negative (NEGATIVE) Urine Bilirubin Small H (NEGATIVE) Urine Urobilinogen 0.2 (0.2-1.0) E.U./dL Ur Leukocyte Esterase Negative (NEGATIVE) U Hyaline Cast (Auto) Few Urine RBC 30-40 H /HPF Urine WBC 0-5 /HPF Ur Epithelial Cells Few /LPF Urine Bacteria Few (NONE TO FEW) /HPF Ketones Moderate 08/07/20 08/07/20 08/07/20 Range/Units 05:05 05:05 05:55 WBC (4.0-10.2) K/uL RBC (3.77-5.09) M/uL Hgb (11.7-15.5) g/dL Hct (34.0-46.0) % MCV (84.0-98.0) fL MCH (28.2-33.3) pg MCHC (31.7-36.0) g/dL RDW (11.2-14.1) % Plt Count (150-350) K/uL Neut % (Auto) (45.0-80.0) % Lymph % (Auto) (10.0-50.0) % Sabine % (Auto) (2.0-14.0) % Eos % (Auto) (0.0-5.0) % Baso % (Auto) (0.0-2.0) % Neut # (Auto) (1.40-7.00) K/uL Lymph # (Auto) (0.50-3.50) K/uL Sabine # (Auto) (0.00-1.00) K/uL Eos # (Auto) (0.00-0.50) K/uL Baso # (Auto) (0.00-0.20) K/uL POC ABG pH 7.3 L (7.35-7.45) pH POC ABG pCO2 26 L* (35-48) mmHg POC ABG pO2 93 (83-108) mmHg POC ABG HCO3 13.1 L (22-26) mmol/L POC ABG Total CO2 13.6 L (23-27) mmol/L POC ABG O2 Sat 72.1 L (95-98) % POC ABG Base Excess -12 L (-2-3) mmol/L O2 Delivery Device Room air Oxygen Flow Rate Not Reportable Sodium 136 (136-145) mmol/L Potassium 4.3 (3.5-5.1) mmol/L Chloride 95 L (98-107) mmol/L Carbon Dioxide 13.0 L D (21.0-32.0) mmol/L BUN 33 H (7-18) mg/dL Creatinine 1.16 (0.51-1.17) mg/dL Est Cr Clr Drug Dosing 59.96 mL/min Estimated GFR (MDRD) 49 mL/min Glucose 499 H* (70-99) mg/dL Lactic Acid 3.7 H (0.4-2.0) mmol/L Calcium 9.0 (8.5-10.1) mg/dL Magnesium 1.5 L (1.8-2.4) mg/dL Total Bilirubin (0.2-1.0) mg/dL AST (15-37) U/L ALT (12-78) U/L Alkaline Phosphatase (46-116) IU/L Total Protein (6.4-8.2) g/dL Albumin (3.4-5.0) g/dL Specimen Type Urine Color Urine Appearance Urine pH (5.0-9.0) Ur Specific Tr[place]ble (1.005-1.030) Urine Protein (NEGATIVE) mg/dL Urine Glucose (UA) (NEGATIVE) mg/dL Urine Ketones (NEGATIVE) mg/dL Urine Occult Blood (NEGATIVE) Urine Nitrite (NEGATIVE) Urine Bilirubin (NEGATIVE) Urine Urobilinogen (0.2-1.0) E.U./dL Ur Leukocyte Esterase (NEGATIVE) U Hyaline Cast (Auto) Urine RBC /HPF Urine WBC /HPF Ur Epithelial Cells /LPF Urine Bacteria (NONE TO FEW) /HPF Ketones
[2020-08-07] MEDS ORDERED: DULoxetine 30 MG Cap PO SCH (08:00)
[2020-08-07] MEDS ORDERED: Aspirin 81 MG Tab.Chew PO SCH (08:00)
[2020-08-07] MEDS ORDERED: Gabapentin 300 MG Cap PO SCH (08:00)
[2020-08-07] MEDS ORDERED: Pantoprazole 40 MG Vial IVPUSH SCH (08:00)
[2020-08-07] MEDS ORDERED: Simvastatin 20 MG Tab PO SCH (20:00)
== END 2020-08-07 07:30 | DRG 74 ==
LOC: LL.ED 21:51 → LL.MS 22:40
PROVIDERS: ADMIT Emergency Medicine; ATTEND Emergency Medicine
DX: E10.43 Type 1 diabetes mellitus with diabetic autonomic (poly)neuropathy (principal); E10.10 Type 1 diabetes mellitus with ketoacidosis without coma; K31.84 Gastroparesis; E78.5 Hyperlipidemia, unspecified; E10.42 Type 1 diabetes mellitus with diabetic polyneuropathy; K21.9 Gastro-esophageal reflux disease without esophagitis; N32.81 Overactive bladder; J43.1 Panlobular emphysema; E83.42 Hypomagnesemia; H54.7 Unspecified visual loss; E78.00 Pure hypercholesterolemia, unspecified; M19.90 Unspecified osteoarthritis, unspecified site; F41.0 Panic disorder [episodic paroxysmal anxiety]; F32.9 Major depressive disorder, single episode, unspecified; F17.200 Nicotine dependence, unspecified, uncomplicated; Z88.0 Allergy status to penicillin; Z88.1 Allergy status to other antibiotic agents; Z91.09 Other allergy status, other than to drugs and biological substances; Z88.5 Allergy status to narcotic agent; Z88.2 Allergy status to sulfonamides; Z88.8 Allergy status to other drugs, medicaments and biological substances; Z79.899 Other long term (current) drug therapy
CPT/HCPCS: 36415; 36600; 80048; 80053; 81001; 82009; 82803; 83605; 83735; 85025; 96374; 99222; 99238; 99285-25; J0696; J1815-GY; J2060; J2405; J2765; J3480; J7030; J7040

== ENCOUNTER 2022-07-25 11:10 | Emergency (ER) | payer OTHER ==
[2022-07-25 12:42] LABS: ANION GAP 11.1 meq/L (7-15)
[2022-07-25] MEDS ORDERED: Lidocaine 2% with EPINEPHrine 1:100,000 20 ML MDV INJECT ONE (12:50)
[2022-07-25] MEDS ORDERED: Lidocaine 2% with EPINEPHrine 1:100,000 20 ML MDV ONE (12:51)
[2022-07-25] MEDS ORDERED: Bacitracin Oint 1 GM U/D Packet TOP ONE (13:05)
[2022-07-25] MEDS ORDERED: Bacitracin Oint 1 GM U/D Packet ONE (13:05)
== END 2022-07-25 13:25 | disposition home or self-care (01) ==
LOC: LL.ED 11:10
DX: T81.31XA Disruption of external operation (surgical) wound, not elsewhere classified, initial encounter (principal); E78.00 Pure hypercholesterolemia, unspecified; K21.9 Gastro-esophageal reflux disease without esophagitis; M19.90 Unspecified osteoarthritis, unspecified site; E10.9 Type 1 diabetes mellitus without complications; Z91.048 Other nonmedicinal substance allergy status; Z88.0 Allergy status to penicillin; Z88.5 Allergy status to narcotic agent; Z91.018 Allergy to other foods; Z88.2 Allergy status to sulfonamides; Z88.8 Allergy status to other drugs, medicaments and biological substances; Z79.82 Long term (current) use of aspirin; Z79.899 Other long term (current) drug therapy
CPT/HCPCS: 12001; 36415; 80053; 83605; 85025; 87070; 87205; 99283; J3490

== ENCOUNTER 2023-05-30 14:22 | Emergency (ER) | payer OTHER ==
[2023-05-30 14:57] LABS: BASOPHILS ABSOLUTE AUTO 0.03 K/uL (0.00-0.20); BASOPHILS PERCENT AUTO 0.4 % (0.0-2.0); EOSINOPHILS ABSOLUTE AUTO 0.03 K/uL (0.00-0.50); EOSINOPHILS PERCENT AUTO 0.4 % (0.0-5.0); HEMATOCRIT 45.8 % (34.0-46.0); LYMPHOCYTES ABSOLUTE AUTO 1.32 K/uL (0.50-3.50); LYMPHOCYTES PERCENT AUTO 15.7 % (10.0-50.0); MEAN CORPUSCULAR HGB CONC 34.9 g/dL (31.7-36.0); MEAN CORPUSCULAR VOLUME 94.4 fL (84.0-98.0); MONOCYTES ABSOLUTE AUTO 0.43 K/uL (0.00-1.00); MONOCYTES PERCENT AUTO 5.1 % (2.0-14.0); NEUTROPHILS ABSOLUTE AUTO 6.62 K/uL (1.40-7.00); NEUTROPHILS PERCENT AUTO 78.4 % (45.0-80.0); PLATELET COUNT,PLT 255 K/uL (150-350); RED BLOOD CELL COUNT 4.85 M/uL (3.77-5.09); RED CELL DISTRIBUTION WIDTH 13.8 % (11.2-14.1); WHITE BLOOD CELL COUNT,WBC 8.4 K/uL (4.0-10.2)
[2023-05-30] MEDS: LORazepam 2 MG/ML SDV IVPUSH ONE (15:01)
[2023-05-30] MEDS: Ondansetron 4 MG/2 ML SDV IVPUSH ONE (15:03)
[2023-05-30] MEDS: Sodium Chloride 0.9% 1,000 ML IV ONE (15:03)
[2023-05-30] MEDS: Metoclopramide 10 MG/2 ML SDV IVPUSH ONE (15:03)
[2023-05-30] MEDS: Sodium Chloride 0.9% 10 ML Syringe FLUSH PRN (15:05)
[2023-05-30 15:24] LABS: ALBUMIN 3.8 g/dL (3.4-5.0); ANION GAP 11.4 meq/L (7-15); BILIRUBIN TOTAL 0.7 mg/dL (0.2-1.0); CALCIUM 11.4 mg/dL (8.5-10.1); CARBON DIOXIDE,CO2 29.9 mmol/L (21.0-32.0); CREATININE 1.27 mg/dL (0.51-1.17); EST CRCL DRUG DOSING (CG) 47.32 mL/min; MAGNESIUM 1.7 mg/dL (1.8-2.4); POTASSIUM,K 5.3 mmol/L (3.5-5.1); PROTEIN TOTAL,TP 7.6 g/dL (6.4-8.2)
[2023-05-30] MEDS: Magnesium Chloride 64 MG Tab.ER PO ONE (16:42)
[2023-05-31] MEDS ORDERED: Magnesium Chloride 64 MG Tab.ER PO ONE (16:21)
== END 2023-05-30 16:51 | disposition home or self-care (01) ==
LOC: LL.ED 14:22
DX: E86.0 Dehydration (principal); E83.42 Hypomagnesemia; E78.00 Pure hypercholesterolemia, unspecified; E10.40 Type 1 diabetes mellitus with diabetic neuropathy, unspecified; K21.9 Gastro-esophageal reflux disease without esophagitis; M19.90 Unspecified osteoarthritis, unspecified site; Z79.82 Long term (current) use of aspirin; Z79.4 Long term (current) use of insulin; Z79.899 Other long term (current) drug therapy; Z88.1 Allergy status to other antibiotic agents; Z91.018 Allergy to other foods; Z88.2 Allergy status to sulfonamides; Z88.5 Allergy status to narcotic agent
CPT/HCPCS: 36415; 80053; 83735; 84132; 85025; 96361; 96374; 96375; 99284; 99284-25; A9270-GY; J2060; J2405; J2765; J3490; J7030